=== PATIENT | female | born 1950 | race Caucasian/White ===

== ENCOUNTER 2016-08-30 03:40 | Inpatient (IN) | payer MEDICARE, BC ==
[2016-08-30] VITALS (17 sets, daily range): BP systolic 127–182; BP diastolic 61–88; PULSE 78–98; RESP 16–27; TEMP 98–101.4; O2SAT 88–96
[~2016-08-30] VITALS: Ht 160 cm; Wt 86.2 kg
[~2016-08-30 03:40] MED LIST: ALPR.25 PO; ASCO500C PO; CALCCHW25 CHEW; CLON.1 PO; DIAZ5TAB PO; HYDR-3516 PO; IMIT100T PO; LAXA5TAB PO; MULT-135 PO; PROC10TA PO; ZOFR4TAB PO; ZOVI400T PO; [UNRECOGNIZED DRUG - CODE]
[2016-08-30] MEDS ORDERED: METH5TAB PO (04:09)
--- NOTE | 2016-08-30 04:13 | PD ---
HPI Chief Complaint: GI Complaint Time Seen by Provider: 04:08 Travel History International Travel<30 days: No Contact w/Intl Traveler<30days: No Traveled to known affect area: No History of Present Illness HPI The patient is a 66-year-old female that received her fourth chemotherapy treatment for urethral cancer on Saturday. She complained of wheezing, cough and vomiting starting at 1 AM this morning. She denies any fever. 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, bone) Cardiovascular Problems: Yes (mitral valve prolapse) Chemotherapy: No Diabetes: No Diminished Hearing: No Endocrine: No Genitourinary: Yes (left kidney nephrectomy due to cancer) Hepatitis: No Hiatal Hernia: No Immune Disorder: No Implanted Vascular Access Dvce: Yes Musculoskeletal: Yes (L5-s1 pain, neck pain ) Neurologic: Yes (migraines) Psychiatric: Yes (anxiety) Reproductive: No Respiratory: No Thyroid Disease: No Menopausal: Yes Past Surgical History Abdominal Surgery: Yes (colon resection 2013 r/t kidney cancer with mets) AICD: No Body Medical Devices: kidney stent Cardiac Surgery: No Endocrine Surgery: No Genitourinary Surgery: Yes (left nephrectomy-12/2010 cancerious tumors removed from the bladder-2012) Joint Replacement: No Pacemaker: No Thoracic Surgery: No Other Surgery: Yes (LEFT KIDNEY REMOVED) Social History Alcohol Use: Yes (occas. wine) Tobacco Use: No (quit in 1992 smoked cigs 1 ppd) Substance Use: No Allergies-Medications (Allergen,Severity, Reaction): Coded Allergies: Clindamycin (Unverified Allergy, Severe, unknown reaction, 09/02/15) Keflex (Unverified Allergy, Severe, extreme headache, 09/02/15) Penicillin (Verified Allergy, Severe, MAKES ME SLEEPY, 09/02/15) Prednisone (Unverified Allergy, Severe, extreme agitation, 09/02/15) Morphine (Unverified Adverse Reaction, Mild, i.v. n/v, 09/02/15) Reported Meds & Prescriptions Reported Meds & Active Scripts Active Reported Nortriptyline (Nortriptyline HCl) 10 Mg Cap 10 Mg PO HS Propranolol (Propranolol HCl) 10 Mg Tab 10 Mg PO Q12HR Methadone (Methadone HCl) 5 Mg Tab 5 Mg PO DAILY Hydrocodone-Acetaminophen 5-325 mg Tab 1 Tab PO Q6H PRN Laxative Feminine DR (Bisacodyl) 5 Mg Tabdr 5 Mg PO DAILY PRN Zofran (Ondansetron HCl) 4 Mg Tab 4 Mg PO Q4HR PRN Prochlorperazine Maleate 10 Mg Tab 10 Mg PO Q6H PRN Multi Vitamin (Multiple Vitamin) 1 Tab Tab 1 Tab PO DAILY Garlic Oil (Garlic) 1,000 Mg Cap Diazepam 5 Mg Tab 5 Mg PO BID PRN Catapres (Clonidine) 0.1 Mg Tab 0.1 Mg PO HS PRN Calcium + D & K (Calcium-Vitamins D & K) 500-1,000-40 Mg-Unit-Mcg Chew 1 Tab CHEW Imitrex (Sumatriptan Succinate) 100 Mg Tab 100 Mg PO ONCE PRN If a satisfactory response has not been obtained at 2 hours, a second dose may be administered Vitamin C (Ascorbic Acid) 500 Mg Cap 500 Mg PO Xanax (Alprazolam) 0.25 Mg Tab 0.25 Mg PO BID PRN Zovirax (Acyclovir) 400 Mg Tab 400 Mg PO HS Review of Systems Except as stated in HPI: all other systems reviewed are Neg Physical Exam Narrative GENERAL: The patient is alert, oriented 3 and slight respiratory distress. The temperature is 99.8 and blood pressure 165/81. Respirations were 24. Oximetry was 88% on room air. The temperature is repeated by tympanic method and was 101.4. The heart rate is 97. SKIN: Warm and dry. HEAD: Atraumatic. Normocephalic. EYES: Pupils equal and round. No scleral icterus. No injection or drainage. ENT: No nasal bleeding or discharge. Mucous membranes pink and moist. NECK: Trachea midline. No JVD. CARDIOVASCULAR: Regular rate and rhythm. No murmur appreciated. RESPIRATORY: No accessory muscle use. Diminished breath sounds with a few widely scattered wheezes are heard bilaterally. Breath sounds equal bilaterally. GASTROINTESTINAL: Abdomen soft, non-tender, nondistended. Hepatic and splenic margins not palpable. MUSCULOSKELETAL: No obvious deformities. No clubbing. No cyanosis. No edema. NEUROLOGICAL: Awake and alert. No obvious cranial nerve deficits. Motor grossly within normal limits. Normal speech. PSYCHIATRIC: Appropriate mood and affect; insight and judgment normal. Data Data Last Documented VS Vital Signs Date Time Temp Pulse Resp B/P Pulse Ox O2 Delivery O2 Flow Rate FiO2 1/5/17 05:30 88 08/30/16 05:30 24 154/70 93 Nasal Cannula 4 08/30/16 04:42 101.4 Orders Complete Blood Count With Diff (08/30/16 04:08) Comprehensive Metabolic Panel (08/30/16 04:08) Magnesium (Mg) (08/30/16 04:08) Iv Access Insert/Monitor (08/30/16 04:08) Ecg Monitoring (08/30/16 04:08) Oximetry (08/30/16 04:08) Oxygen Administration (08/30/16 04:08) Sodium Chloride 0.9% Flush (Ns Flush) (08/30/16 04:15) Albuterol-Ipratropium Neb (Duoneb Neb) (08/30/16 04:15) Ondansetron Inj (Zofran Inj) (08/30/16 04:15) Arterial Blood Gas (Abg) (08/30/16 ) Chest, Pa & Lat (08/30/16 04:17) Blood Culture (08/30/16 04:38) Hydromorphone Pf Inj (Dilaudid Pf Inj) (08/30/16 05:00) Ondansetron Inj (Zofran Inj) (08/30/16 05:00) Ketorolac Inj (Toradol Inj) (08/30/16 05:00) B-Type Natriuretic Peptide (08/30/16 05:20) Furosemide Inj (Lasix Inj) (08/30/16 05:30) Potassium Chloride (Kcl) (08/30/16 05:30) Sodium Chloride 0.9% Flush (Ns Flush) (08/30/16 05:45) Azithromycin Inj (Zithromax Inj) (08/30/16 05:45) Levofloxacin 750 Mg Premix Inj (Levaquin (08/30/16 05:45) Admit Order (Ed Use Only) (08/30/16 05:58) Labs Laboratory Tests Test 08/30/16 08/30/16 08/30/16 04:27 04:28 04:35 White Blood Count 11.1 TH/MM3 Red Blood Count 3.55 MIL/MM3 Hemoglobin 10.9 GM/DL Hematocrit 32.1 % Mean Corpuscular Volume 90.5 FL Mean Corpuscular Hemoglobin 30.7 PG Mean Corpuscular Hemoglobin 34.0 % Concent Red Cell Distribution Width 14.0 % Platelet Count 253 TH/MM3 Mean Platelet Volume 8.2 FL Neutrophils (%) (Auto) 85.9 % Lymphocytes (%) (Auto) 9.0 % Monocytes (%) (Auto) 3.7 % Eosinophils (%) (Auto) 0.1 % Basophils (%) (Auto) 1.3 % Neutrophils # (Auto) 9.6 TH/MM3 Lymphocytes # (Auto) 1.0 TH/MM3 Monocytes # (Auto) 0.4 TH/MM3 Eosinophils # (Auto) 0.0 TH/MM3 Basophils # (Auto) 0.1 TH/MM3 CBC Comment AUTO DIFF Differential Total Cells 100 Counted Neutrophils % (Manual) 75 % Band Neutrophils % 13 % Lymphocytes % 7 % Monocytes % 5 % Neutrophils # (Manual) 9.8 TH/MM3 Differential Comment FINAL DIFF MANUAL Platelet Estimate NORMAL Platelet Morphology Comment NORMAL Red Cell Morphology Comment NORMAL Sodium Level 142 MEQ/L Potassium Level 3.4 MEQ/L Chloride Level 107 MEQ/L Carbon Dioxide Level 25.6 MEQ/L Anion Gap 9 MEQ/L Blood Urea Nitrogen 22 MG/DL Creatinine 1.20 MG/DL Estimat Glomerular Filtration 45 ML/MIN Rate Random Glucose 96 MG/DL Calcium Level 8.4 MG/DL Magnesium Level 1.9 MG/DL Total Bilirubin 0.6 MG/DL Aspartate Amino Transf 19 U/L (AST/SGOT) Alanine Aminotransferase 28 U/L (ALT/SGPT) Alkaline Phosphatase 47 U/L Total Protein 6.1 GM/DL Albumin 3.1 GM/DL B-Type Natriuretic Peptide 713 PG/ML Blood Gas Puncture Site RT RADIAL Blood Gas Patient Temperature 98.6 Blood Gas HCO3 23 mmol/L Blood Gas Base Excess -0.5 mmol/L Blood Gas Oxygen Saturation 79 % Arterial Blood pH 7.46 Arterial Blood Partial 33 mmHG Pressure CO2 Arterial Blood Partial 46 mmHG Pressure O2 Arterial Blood Oxygen Content 12.0 Vol % Arterial Blood 2.5 % Carboxyhemoglobin Arterial Blood Methemoglobin 1.3 % Blood Gas Hemoglobin 10.8 G/DL Oxygen Delivery Device ROOM AIR Blood Gas Inspired Oxygen 21 % MDM Medical Decision Making Medical Screen Exam Complete: Yes Emergency Medical Condition: Yes Medical Record Reviewed: Yes Interpretation(s) The CBC shows a white count 11,100 with a hemoglobin of 10.9 and hematocrit of 32.1. Neutrophils are 86%. The blood gas on room air shows O2 saturation 79%, PO2 46% with pH 7.46 and CO2 33. The complete metabolic profile shows a potassium 3.4, BUN 22, creatinine 1.2, calcium 8.4 with total protein 6.1 and albumen 3.1 but is otherwise unremarkable. The chest x-ray shows right lower lobe infiltrate but was also suspicious for congestive heart failure. A BNP was done and is 713. Differential Diagnosis Reaction to chemotherapy, pneumonia, congestive heart failure, hypoxemia, bronchospasm, electrolyte disorder, renal insufficiency Narrative Course The patient is on chemotherapy medications that may lead to congestive heart failure. The patient's BNP is elevated and the chest x-ray is shows ST above some congestive heart failure. The patient is hypoxic. Patient did not manifest a fever orally but only on tympanic thermometer. Sepsis is somewhat questionable but the patient does have a pneumonia. A fluid bolus was not given at this time because of the likelihood of congestive heart failure. I discussed the patient with Dr. Hu and the patient will be admitted to [facility] to the electronics engineer service. Dr. Robbins took over the patient and is currently doing ultrasound to define the patient's cardiac status, that is whether the patient is in congestive heart failure. Sepsis Criteria SIRS Criteria (2 or more): Temp > 100.9 or < 96.8, Heart rate over 90, RR > 20 or PaCO2 < 32 Sepsis Criteria (SIRS+source): Infect source susp/known Criteria Outcome: Meets sepsis criteria Diagnosis Primary Impression: Right lower lobe pneumonia Additional Impressions: Congestive heart failure Hypoxemia Admitting Information Admitting Physician Requests: Admit Bjorn Chandler MD Aug 30, 2016 04:13
[2016-08-30] MEDS ORDERED: ONDANSETRON HCL 4 MG/2 ML VIAL IV ONE ×2 (04:15→05:00)
[2016-08-30] MEDS ORDERED: SODIUM CHLORIDE 0.9% FLUSH 5 ML FLUSH IVF PRN ×2 (04:15→05:45)
[2016-08-30] MEDS: RESP: ALBUTEROL 2.5 MG/IPRATROPIUM 0.5 MG NEB (SCH) INH ×3 (04:24→04:46)
[2016-08-30 04:33] LABS: AUTOMATED NEUTROPHIL # 9.6 TH/MM3 (1.8-7.7); BASOPHIL # 0.1 TH/MM3 (0-0.2); BASOPHIL % 1.3 % (0.0-2.0); EOSINOPHIL % 0.1 % (0.0-4.0); HEMATOCRIT 32.1 % (35.0-46.0); MEAN CELL VOLUME 90.5 FL (80.0-100.0); MEAN CORPUSCULAR HEMOGLOBIN 30.7 PG (27.0-34.0); MONO % 3.7 % (0.0-8.0); NEUT % 85.9 % (16.0-70.0); PLATELET COUNT 253 TH/MM3 (150-450); RED BLOOD COUNT 3.55 MIL/MM3 (4.00-5.30); WHITE BLOOD COUNT 11.1 TH/MM3 (4.0-11.0)
[2016-08-30 04:34] LABS: HEMO FLAGS AUTO DIFF
[2016-08-30 04:41] LABS: CHLORIDE 107 MEQ/L (98-107); POTASSIUM 3.4 MEQ/L (3.5-5.1); SODIUM (NA) 142 MEQ/L (136-145)
[2016-08-30 04:44] LABS: ANION GAP 9 MEQ/L (5-15); BICARBONATE 25.6 MEQ/L (21.0-32.0); MAGNESIUM 1.9 MG/DL (1.5-2.5)
[2016-08-30 04:45] LABS: BLOOD UREA NITROGEN 22 MG/DL (7-18)
[2016-08-30 04:48] LABS: ALT (GPT) 28 U/L (10-53); AST (GOT) 19 U/L (15-37); GLOMERULAR FILTRATION RATE 45 ML/MIN (>89)
[2016-08-30 04:49] LABS: TOTAL BILIRUBIN ADULT 0.6 MG/DL (0.2-1.0)
[2016-08-30 04:49] LABS: BLOOD GAS BASE EXCESS -0.5 mmol/L (-2-2); BLOOD GAS CARBOXYHEMOGLOBIN 2.5 % (0-4); BLOOD GAS HCO3 23 mmol/L (22-26); BLOOD GAS METHEMOGLOBIN 1.3 % (0-2); BLOOD GAS PCO2 33 mmHG (38-42); BLOOD GAS PO2 46 mmHG (61-120)
[2016-08-30 04:50] LABS: ALKALINE PHOSPHATASE 47 U/L (45-117)
[2016-08-30 04:50] LABS: BLOOD GAS O2 HGB SATURATION 79 % (90-100); BLOOD GAS TOTAL HGB 10.8 G/DL (12.0-16.0); CRITICAL VALUE YES; DRAW SITE RT RADIAL; FIO2 21 %; NUMBER OF ARTERIAL PUNCTURES 1; OXYGEN DEVICE ROOM AIR; STAT YES; TEMP CORR TO 98.6; ULNAR PULSE PRESENT
[2016-08-30 04:57] LABS: BANDS 13 % (0-6); NEUTROPHIL # MANUAL DIFF 9.8 TH/MM3 (1.8-7.7); PLATELET ESTIMATE SMEAR NORMAL (NORMAL); PLATELET MORPHOLOGY NORMAL (NORMAL); POLYS (SEG NEUTROPHILS) 75 % (16-70); SCAN/DIFF FINAL DIFF MANUAL; WBC DIFF SAMPLE 100
[2016-08-30] MEDS ORDERED: HYDROmorphone HCL PF 1 MG/ML VIAL IVP ONE (05:00)
[2016-08-30] MEDS ORDERED: KETOROLAC TROMETHAMINE 60 MG/2 ML (IM) VIAL IVP ONE (05:00)
[2016-08-30] MEDS ORDERED: FUROSEMIDE 40 MG/4 ML VIAL IV PUSH ONE (05:30)
[2016-08-30] MEDS ORDERED: POTASSIUM CHLORIDE 20 MEQ CONTROLLED RELEASE TAB PO ONE (05:30)
--- NOTE | 2016-08-30 05:34 | RADHPO ---
EXAM DATE/TIME: 08/30/2016 05:06 [facility] COMPARISON: CHEST SINGLE AP, August 01, 2016, 17:51. INDICATIONS : Shortness of breath, cough, wheezing for 12 hours MEDICAL HISTORY : Kidney cancer with mets to the bladder and colon. SURGICAL HISTORY : Infusaport ENCOUNTER: Initial ACUITY: 1 day PAIN SCORE: 0/10 LOCATION: Bilateral chest FINDINGS: PA and lateral views the chest show patchy infiltrate involving the right lung base. Left lung is juan ar. No effusions. Power port overlies the left chest. Heart is normal in size. CONCLUSION: Right lower lobe infiltrate. Ronald Robbins Jr., MD on August 30, 2016 at 5:32 Board Certified Radiologist. This report was verified electronically.
[2016-08-30] MEDS ORDERED: AZITHROMYCIN INJ 500 MG in SODIUM CHLOR 0.9% 250 ML INJ 250 ML IV ONE (05:45)
[2016-08-30] MEDS ORDERED: LEVOFLOXACIN 750 MG PREMIX INJ 150 ML IV ONE (05:45)
[2016-08-30] MEDS ORDERED: MAGNESIUM SULFATE INJ 2 GM in SODIUM CHLORIDE 0.9% INJ 96 ML IV PRN (06:30)
[2016-08-30] MEDS ORDERED: POTASSIUM PHOSPHATE INJ 30 MMOL in SODIUM CHLOR 0.9% 250 ML INJ 250 ML IV PRN (06:30)
[2016-08-30] MEDS ORDERED: POTASSIUM CHLOR 40 MEQ PREMIX 100 ML IV PRN ×2 (06:30)
[2016-08-30] MEDS ORDERED: SUMAtriptan INJ 6 MG/0.5 ML VIAL SQ ONE (06:30)
[2016-08-30] MEDS ORDERED: SODIUM PHOSPHATE INJ 30 MMOL in SODIUM CHLOR 0.9% 250 ML INJ 240 ML IV PRN (06:30)
[2016-08-30] MEDS ORDERED: CHLORHEXIDINE GLUCONATE 2 % 1 PACK (2 CLOTHS) TOP PRN (06:30)
[2016-08-30] MEDS ORDERED: POTASSIUM PHOSPHATE MONOBASIC 500 MG TAB PO PRN (06:30)
[2016-08-30] MEDS ORDERED: POTASSIUM PHOSPHATE MONOBASIC 500 MG TAB PO/TUBE PRN (06:30)
[2016-08-30] MEDS ORDERED: Vancomycin Consult Pharmacy 1 EA OTHER SCH (06:30)
[2016-08-30] MEDS ORDERED: POTASSIUM CHLOR 20 MEQ PREMIX 100 ML IV PRN ×2 (06:30)
[2016-08-30] MEDS ORDERED: MAGNESIUM SULFATE INJ 4 GM in SODIUM CHLORIDE 0.9% INJ 92 ML IV PRN (06:30)
[2016-08-30] MEDS ORDERED: HYDROmorphone HCL PF 1 MG/ML VIAL IV PUSH PRN (06:30)
[2016-08-30] MEDS ORDERED: SODIUM CHLORIDE 0.9% FLUSH 5 ML FLUSH IV FLUSH PRN (06:30)
[2016-08-30] MEDS ORDERED: ACETAMINOPHEN 325 MG TAB PO PRN (06:30)
[2016-08-30] MEDS ORDERED: MISCELLANEOUS NURSING INFORMATION XX SCH (06:30)
[2016-08-30] MEDS ORDERED: DEXTROSE 50% IN WATER 50 ML VIAL(D50) IV PUSH PRN (06:30)
[2016-08-30] MEDS ORDERED: POTASSIUM CL 40 MEQ/30 ML LIQ UDC PO/TUBE PRN ×2 (06:30)
[2016-08-30] MEDS ORDERED: MAGNESIUM OXIDE 400 MG TAB PO PRN (06:30)
[2016-08-30 06:44] LABS: BLOOD, URINE NEG (NEG); GLUCOSE,URINE NEG (NEG); KETONE, URINE NEG (NEG); PH, URINE 5.5 (5.0-8.5)
[2016-08-30 06:45] LABS: METHOD OF COLLECTION CLEAN CATCH; NITRITE,URINE POS (NEG); URINE COLOR YELLOW (YELLW/STRAW)
[2016-08-30 06:48] LABS: BACTERIA, URINE MANY /hpf; COMMENT (UR) CULTURE INDICATED; CULTURE IF INDICATED CULTURE INDICATED; SQUAMOUS EPITHELIAL CELL URINE 0-5 /hpf (0-5)
[2016-08-30] MEDS: HEPARIN SODIUM - SQ 10,000 UNITS/ML VIAL SQ SCH ×3 (07:19→21:22)
[2016-08-30] MEDS: AZTREONAM INJ 1,000 MG in SODIUM CHLORIDE 0.9% INJ 100 ML IV SCH ×3 (08:00→23:13)
[2016-08-30] MEDS: SODIUM CHLORIDE 0.9% FLUSH 5 ML FLUSH IV FLUSH SCH ×2 (09:00→21:00)
[2016-08-30] MEDS: DOCUSATE SODIUM 50 MG/SENNA 8.6 MG TAB PO SCH ×2 (09:00→21:21)
[2016-08-30] MEDS: VANCOMYCIN INJ 1,600 MG in SODIUM CHLORID 0.9% 500 ML INJ 500 ML IV SCH (09:00)
[2016-08-30] MEDS: PANTOPRAZOLE SODIUM 40 MG VIAL IV SCH (09:00)
[2016-08-30] MEDS ORDERED: IODIXANOL 320 MG/ML 10 ML VIAL (for Rad CT) IV ONE (09:47)
--- NOTE | 2016-08-30 09:53 | RADRPT ---
EXAM DATE/TIME: 08/30/2016 09:21 [facility] COMPARISON: CHEST PA & LAT, August 30, 2016, 5:06. INDICATIONS : New onset cough, shortness of breath. IV CONTRAST: 50 cc Visipaque (iodixanol) IV ; Cumulative dose for multiple exams. RADIATION DOSE: 15.40 CTDIvol (mGy) ; Combined studies MEDICAL HISTORY : Cardiovascular disease. Renal cancer with multiple metastic lesions SURGICAL HISTORY : Nephrectomy, left. ENCOUNTER: Initial ACUITY: 1 day PAIN SCALE: 0/10 LOCATION: chest TECHNIQUE: Volumetric scanning of the chest was performed using a pulmonary embolism protocol MIP images were re constructed. Using automated exposure control and adjustment of the mA and/or kV according to patien t size, radiation dose was kept as low as reasonably achievable to obtain optimal diagnostic quality images. FINDINGS: PULMONARY ARTERIES: No filling defects are seen in the pulmonary arteries through the segmental level. LUNGS: Severe emphysema. Patchy bibasilar densities. Groundglass densities in the posterior upper lobes grea ter on the right. PLEURAE: There are bilateral small pleural effusions greater on the right. MEDIASTINUM: There is good visualization of the great vessels of the middle mediastinum. No evidence of mediastin al or hilar adenopathy/mass. MUSCULOSKELETAL: Within normal limits for patient age. MISCELLANEOUS: The visualized upper abdominal organs demonstrate no acute abnormality. Left-sided portacatheter with tip at the cavoatrial junction. CONCLUSION: 1. No evidence for pulmonary embolism. 2. Scattered groundglass densities possibly interstitial edema. 3. Bibasilar densities likely atelectasis. 4. Small pleural effusions, greater on the right. 5. Severe emphysema. Yevgeniy Marsh MD on August 30, 2016 at 9:48 Board Certified Radiologist. This report was verified electronically.
--- NOTE | 2016-08-30 10:03 | RADRPT ---
EXAM DATE/TIME: 08/30/2016 09:21 [facility] COMPARISON: No previous studies available for comparison. INDICATIONS : History of metastatic disease with new onset nausea and vomiting. IV CONTRAST: 50 cc Visipaque (iodixanol) IV ; Cumulative dose for multiple exams. ORAL CONTRAST: No oral contrast ingested. RADIATION DOSE: 16.34 CTDIvol (mGy) MEDICAL HISTORY : Cardiovascular disease. Metastatic, kidney. SURGICAL HISTORY : Nephrectomy, left. ENCOUNTER: Initial ACUITY: 1 day PAIN SCALE: 0/10 LOCATION: Bilateral abdomen TECHNIQUE: Volumetric scanning of the abdomen and pelvis was performed. Using automated exposure control and ad justment of the mA and/or kV according to patient size, radiation dose was kept as low as reasonably achievable to obtain optimal diagnostic quality images. FINDINGS: There is a multilobulated soft tissue mass in the left hemipelvis measuring over 5 cm in diameter and also resulting in bony destruction of the upper left iliac bone. Finding is most characteristic of m etastatic renal cell carcinoma given the history of renal cell carcinoma with left nephrectomy. Findi ng is new since December 2014. There are small bilateral pleural effusions and compressive atelectasis at the lung bases. No focal a bnormality identified of the liver, spleen, adrenals, right kidney or pancreas. No calcified gallston es or biliary ductal dilatation. Manriquez catheter present the bladder. There is no gastric distention. No small bowel obstruction or dilatation. CONCLUSION: 1. Soft tissue and bony destructive mass in the left hemipelvis measuring over 5 cm in diameter jeremy cteristic of metastatic renal cell carcinoma. Postoperative left nephrectomy. 2. Small bilateral pleural effusions with basilar lung atelectasis. 3. No gastric distention. No bowel obstruction, free fluid or free air. Willie Landa MD on August 30, 2016 at 9:50 Board Certified Radiologist. This report was verified electronically.
[2016-08-30] MEDS: INSULIN NovoLIN REGULAR SUPPLEMENTAL SCALE SQ SCH ×2 (12:00→18:00)
[2016-08-30] MEDS ORDERED: PROP10TA6 PO (16:22)
[2016-08-30] MEDS ORDERED: NORT10CA PO (16:25)
--- NOTE | 2016-08-30 16:39 | HHI.HP ---
[facility] Service Critical Care Medicine Primary Care Physician Ming Cabrera, DO Admission Diagnosis right lower lobe pneumonia, hypoxemia Diagnosis: Chief Complaint: shortness of breath Travel History International Travel<30 Days: No Contact w/Intl Traveler <30 Da: No Traveled to Known Affected Are: No History of Present Illness This is a 66yF with history of urothelial carcinoma with wide-spread retroperitoneal mets including pelvic mets who is actively undergoing chemotherapy with vincristine, cisplatin, doxorubicin, and methotrexate (last chemo 08/28) who presents with new-onset shortness of breath, nausea, vomiting x 1 day. She endorses fever, but denies chills. denies chest pain. Of note, she was started on methadone for cancer pain, and she took her first dose of this on an empty stomach, and felt nauseated a few hours after this. In the emergency room, she was found to have a wbc 11.1, fever to 101.4F, and a new oxygen requirement of 4L o2 by NC. Given the concern for possible impending neutropenia given her recent chemotherapy exposure, and the symptoms concerning for a pulmonary source, possible early sepsis was entertained. her lactate is 1.1. Critical care medicine is consulted to evaluate and manage her possible early sepsis. Of note, her BNP was slightly elevated at 700. 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 He give patient 40 mg of IV Lasix 1. I evaluated the patient at approximately 06:05am. When I evaluated her, she was alert and oriented and was able to confirm the above history. Review of Systems Constitutional: COMPLAINS OF: Fever, DENIES: Diaphoretic episodes, Fatigue, Chills, Night Sweats Respiratory: COMPLAINS OF: Shortness of breath, DENIES: Cough, Wheezing, Sputum production Cardiovascular: DENIES: Chest pain, Syncope, Dyspnea on Exertion Gastrointestinal: COMPLAINS OF: Nausea, Vomiting, DENIES: Abdominal pain, Constipation, Diarrhea Past Family Social History Allergies: Coded Allergies: Clindamycin (Unverified Allergy, Severe, unknown reaction, 09/02/15) Keflex (Unverified Allergy, Severe, extreme headache, 09/02/15) Penicillin (Verified Allergy, Severe, MAKES ME SLEEPY, 09/02/15) Prednisone (Unverified Allergy, Severe, extreme agitation, 09/02/15) Morphine (Unverified Adverse Reaction, Mild, i.v. n/v, 09/02/15) Past Medical History Anxiety left kidney cancer with mets to bladder and colon and bone. Mitral valve prolapse Lumbar back pain Anxiety Migraines Past Surgical History Colon resection 2013 Left nephrectomy 2010 Tumors removed from the bladder 2012 Port placement Kidney stent Reported Medications Methadone (Methadone HCl) 5 Mg Tab 5 Mg PO DAILY Hydrocodone-Acetaminophen 5-325 mg Tab 1 Tab PO Q6H PRN Laxative Feminine DR (Bisacodyl) 5 Mg Tabdr 5 Mg PO DAILY PRN Zofran (Ondansetron HCl) 4 Mg Tab 4 Mg PO Q4HR PRN Prochlorperazine Maleate 10 Mg Tab 10 Mg PO Q6H PRN Multi Vitamin (Multiple Vitamin) 1 Tab Tab 1 Tab PO DAILY Garlic Oil (Garlic) 1,000 Mg Cap Diazepam 5 Mg Tab 5 Mg PO BID PRN Catapres (Clonidine) 0.1 Mg Tab 0.1 Mg PO HS PRN Calcium + D & K (Calcium-Vitamins D & K) 500-1,000-40 Mg-Unit-Mcg Chew 1 Tab CHEW Imitrex (Sumatriptan Succinate) 100 Mg Tab 100 Mg PO ONCE PRN If a satisfactory response has not been obtained at 2 hours, a second dose may be administered Vitamin C (Ascorbic Acid) 500 Mg Cap 500 Mg PO Xanax (Alprazolam) 0.25 Mg Tab 0.25 Mg PO BID PRN Zovirax (Acyclovir) 400 Mg Tab 400 Mg PO HS Active Ordered Medications See MAR Family History reviewed and found to be noncontributory to her acute illness Social History occasional wine drinker, 1ppd prior smoker but quit in 1992. denies DOA. Physical Exam Vital Signs Vital Signs Date Time Temp Pulse Resp B/P Pulse Ox O2 Delivery O2 Flow Rate FiO2 08/30/16 16:00 84 08/30/16 16:00 98.0 84 19 172/81 95 08/30/16 14:00 89 08/30/16 12:00 98.0 82 16 139/64 96 08/30/16 12:00 82 08/30/16 10:00 82 08/30/16 08:30 96 Nasal Cannula 4.00 08/30/16 08:30 98.5 82 27 135/61 96 08/30/16 08:15 82 08/30/16 07:24 80 18 96 Nasal Cannula 4 08/30/16 07:01 89 18 127/64 95 Nasal Cannula 2 08/30/16 06:20 88 24 137/62 94 Nasal Cannula 4 08/30/16 05:30 88 08/30/16 05:30 90 24 154/70 93 Nasal Cannula 4 08/30/16 04:53 24 08/30/16 04:46 95 Nasal Cannula 4.00 08/30/16 04:42 101.4 88 20 182/84 88 08/30/16 04:14 18 93 Nasal Cannula 2 08/30/16 04:14 93 Nasal Cannula 2 08/30/16 04:14 18 08/30/16 04:09 99.8 98 18 170/88 88 Physical Exam GENERAL: Elderly female, lying in bed HEENT: Bald, pupils equal, round, conjugate, reactive. Mucous membranes are dry. NECK: No JVD. Trachea is midline. CHEST: Equal chest rise. Mildly tachypneic. On 4 L nasal cannula oxygen with SPO2 96%. Clear to auscultation bilaterally. CARDIOVASCULAR: Normal rate, regular rhythm. No appreciable murmurs. ABDOMEN: Obese, soft, nontender, nondistended. No guarding. MUSCULOSKELETAL: No peripheral edema. Distal pulses 2+. NEUROLOGICAL: RASS 0. CAM -. Follows commands in all 4 extremities. No focal motor or sensory deficits. Laboratory Laboratory Tests Test 08/30/16 08/30/16 08/30/16 08/30/16 04:27 04:28 04:35 06:30 White Blood Count 11.1 Red Blood Count 3.55 Hemoglobin 10.9 Hematocrit 32.1 Mean Corpuscular Volume 90.5 Mean Corpuscular Hemoglobin 30.7 Mean Corpuscular Hemoglobin 34.0 Concent Red Cell Distribution Width 14.0 Platelet Count 253 Mean Platelet Volume 8.2 Neutrophils (%) (Auto) 85.9 Lymphocytes (%) (Auto) 9.0 Monocytes (%) (Auto) 3.7 Eosinophils (%) (Auto) 0.1 Basophils (%) (Auto) 1.3 Neutrophils # (Auto) 9.6 Lymphocytes # (Auto) 1.0 Monocytes # (Auto) 0.4 Eosinophils # (Auto) 0.0 Basophils # (Auto) 0.1 CBC Comment AUTO DIFF Differential Total Cells 100 Counted Neutrophils % (Manual) 75 Band Neutrophils % 13 Lymphocytes % 7 Monocytes % 5 Neutrophils # (Manual) 9.8 Differential Comment FINAL DIFF MANUAL Platelet Estimate NORMAL Platelet Morphology Comment NORMAL Red Cell Morphology Comment NORMAL Sodium Level 142 Potassium Level 3.4 Chloride Level 107 Carbon Dioxide Level 25.6 Anion Gap 9 Blood Urea Nitrogen 22 Creatinine 1.20 Estimat Glomerular Filtration 45 Rate Random Glucose 96 Calcium Level 8.4 Magnesium Level 1.9 Total Bilirubin 0.6 Aspartate Amino Transf 19 (AST/SGOT) Alanine Aminotransferase 28 (ALT/SGPT) Alkaline Phosphatase 47 Total Protein 6.1 Albumin 3.1 B-Type Natriuretic Peptide 713 Blood Gas Puncture Site RT RADIAL Blood Gas Patient Temperature 98.6 Blood Gas HCO3 23 Blood Gas Base Excess -0.5 Blood Gas Oxygen Saturation 79 Arterial Blood pH 7.46 Arterial Blood Partial 33 Pressure CO2 Arterial Blood Partial 46 Pressure O2 Arterial Blood Oxygen Content 12.0 Arterial Blood 2.5 Carboxyhemoglobin Arterial Blood Methemoglobin 1.3 Blood Gas Hemoglobin 10.8 Oxygen Delivery Device ROOM AIR Blood Gas Inspired Oxygen 21 Urine Collection Type CLEAN CATCH Urine Color YELLOW Urine Turbidity SLIGHT Urine pH 5.5 Urine Specific [place] 1.013 Urine Protein NEG Urine Glucose (UA) NEG Urine Ketones NEG Urine Occult Blood NEG Urine Nitrite POS Urine Bilirubin NEG Urine Leukocyte Esterase NEG Urine WBC 9-14 Urine WBC Clumps FEW Urine Squamous Epithelial 0-5 Cells Urine Amorphous Sediment FEW Urine Bacteria MANY Microscopic Urinalysis Comment CULTURE INDICATED Urine Collection Time 0630 Test 08/30/16 06:40 Lactic Acid Level 1.1 Date/Time Procedure Status Source Growth 08/30/16 06:30 Urine Culture Received Urine Clean Catch Pending 08/30/16 06:30 Streptococcus pneumoniae Antigen (M - Final Complete Urine Catheterized Urine PRESUMPTIVE NEGATIVE FOR STREPTOCOCCU... 08/30/16 04:50 Aerobic Blood Culture Received Blood Peripheral Pending 08/30/16 04:50 Anaerobic Blood Culture Received Blood Peripheral Pending Result Diagram: 08/30/167 08/30/16426 Assessment and Plan Assessment and Plan Assessment: This is a 66-year-old female with history of urothelial cancer now status post chemotherapy on 08/28. Many of her symptoms can be explained by chemotherapy associated nausea and vomiting. I have consulted her primary oncologist who will evaluate the patient and assist with discerning which these symptoms are related to her recent chemotherapy. I do think that her new fever , leukocytosis, and oxygen requirement are all concerning. Pulmonary embolism could cause this, but also a new community-acquired pneumonia. We will move ahead with CT pulmonary angiogram to evaluate this. In addition, she has known intra-abdominal metastases, and I think proceeding with a CT abdomen and pelvis since her last evaluation was back in May, we'll give us an idea of whether or not there is progression of disease and whether or not this disease is causing intra-abdominal symptoms that she is having. Hemodynamically, she is stable, and I do think it is meier to admit her to the ICU for today. If she remains stable, we can transition her to the floor tomorrow. As far as the concern of the elevated BNP, clinically she does not appear to be in overt heart failure. I performed a critical care bedside ultrasound which demonstrated grossly preserved LV systolic function, preserved RV function, 1.8 cm IVC without respiratory variation. No pericardial effusion. I do not find her to be in decompensated heart failure. I do think it is reasonable to obtain 2-D echocardiogram to evaluate ventricular function since we do not have a prior echocardiogram here. Plan by systems: Neurologic: Migraines Cancer associated pain Dilaudid as needed for pain We'll restart home migraine medicines: Nortriptyline, Imitrex Respiratory: Acute hypoxemia Wean oxygen by nasal cannula for goal SPO2 greater than 92% Incentive spirometer to bedside Follow-up CT chest, CT pulmonary angiogram Cardiovascular: Possible early sepsis Possible systolic heart failure Monitored in ICU setting Lactate 1.1 Follow-up 2-D echocardiogram She will get a large volume of IV fluids with her antibiotics. We will not add additional maintenance IV fluids at this time. Renal: Acute kidney injury Place Manriquez catheter for strict I's and O's -- Strict I/Os FEN/GI: Acute protein calorie malnutritionmild Hypokalemia ICU electrolyte protocol Nursing bedside swallow assessment advanced to clear liquid diet. We can advance slowly after that if her nausea resolves Zofran for nausea Daily BMP Follow-up CT abdomen pelvis Heme/ID: Anemia, likely secondary to chemotherapy Leukocytosis Possible pneumonia Urothelial carcinoma with widespread metastatic disease. Vancomycin with pharmacy dosing Aztreonam Azithromycin Sputum, blood, urine cultures Urine pneumococcal antigen Given her presumed immune compromised state with recent chemotherapy, we will consult ID. Consult her primary oncologist Endocrine: Hyperglycemia of critical illness -- SSI on medium scale, before meals at bedtime Prophylaxis: GI Prophylaxis Protonix 40 mg IV every 24 hours DVT Prophylaxis -- SCDs Subcutaneous heparin 5000 every 8 the setting of renal dysfunction. We will stop this to Lovenox if her renal function improves, but I'm not sure what the course of her renal dysfunction will be. Lines: Peripheral IVs Port access. We will attempt to Deaccess this if possible. Dispo: Transfer to the main [place] intensive care unit. I agree that she should be watched closely. If she remained stable throughout the day, I think it is safe to transfer to the floor. Code Status Full Code Jayme Mckeon MD Aug 30, 2016 16:39
[2016-08-30] MEDS: ONDANSETRON HCL 4 MG/2 ML VIAL IV PRN ×2 (17:04→23:13)
--- NOTE | 2016-08-30 20:30 | MB ---
cc: ANI MCKEON MD, RUBY ANNE E. M.D. DATE OF CONSULTATION: 08/30/2016 DATE OF [address] Ani Mckeon CHIEF COMPLAINT Dr. Mckeon requested a consultation for Ms. Plata regarding metastatic/locally advanced urothelial cancer. HISTORY OF PRESENT ILLNESS Ms. Plata is a 66-year-old woman well-known patient with a history of superficial bladder cancer who developed progressive and metastatic disease. She is status post cycle 2 of MVAC chemotherapy. Two days after chemotherapy, she had a significant amount of nausea, vomiting and became short of breath. She called Dr. Hu architectural draftsperson who advised them to go to the emergency room because of the shortness of breath. In the emergency room, she was found to have early infiltrate and B-natriuretic peptide was 713. In light of her symptoms, she was transferred from [place] [facility] to [facility]. Hematology/Oncology is consulted for the metastatic locally advanced bladder cancer. She complains of persistent migraine headaches. This is typical for her. She has mood swings and irritability post dexamethasone. She had a great deal more nausea. She attributes part of that to the methadone. She still has pain from the headache and from the left hip. She has no appetite and was clearly short of breath and has improved during the time of the consultation. She denies any vision changes. She had some low grade temperature on presentation. Her temperature was 101.4. She was not however neutropenic. She denies any urinary complaint, no hematuria, no diarrhea. PAST MEDICAL HISTORY 1. Iron deficiency anemia. 2. Chronic renal insufficiency. 3. Nephrolithiasis. 4. Migraine headache. 5. Superficial bladder cancer. 6. Metastatic invasive bladder cancer. PAST SURGICAL HISTORY 1. Laparoscopic surgery. 2. Peritoneal nodule excision. 3. Cystoscopy. 4. Left nephrectomy. 5. CT-guided bone biopsy. ALLERGIES CLINDAMYCIN, KEFLEX, MORPHINE, PENICILLIN, PREDNISONE. CURRENT MEDICATION 1. Azithromycin. 2. Nortriptyline. 3. Propranolol. 4. Imitrex. 5. Protonix. 6. Kelli-Colace. 7. Vancomycin. 8. Aztreonam. 9. Magnesium oxide. 10. Roxicodone. 11. Zofran. 12. Heparin. PHYSICAL EXAMINATION VITAL SIGNS: Temperature 98.0, heart rate 84, respiratory rate 19, blood pressure 172/81, saturation 92%. GENERAL: Ms. Plata is a tired-appearing woman with alopecia. HEENT: Her pupils are round and reactive to light and accommodation. Oropharynx is dry. NECK: Neck is supple. LUNGS: Lungs are clear anteriorly. CARDIOVASCULAR: Reveals a normal rate and rhythm. ABDOMEN: Abdomen is benign. LOWER EXTREMITIES: Lower extremities with no edema. NEUROLOGIC: Exam is nonfocal. LABORATORY DATA Significant for leukocytosis, white blood cell count 11.1, hemoglobin at 10.9, platelet count 253, BUN of 22, creatinine 1.2, albumin decreased at 3.1, B-natriuretic peptide is 715. FAMILY HISTORY Significant for colon and liver cancer. She is , has a significant other. SOCIAL HISTORY Denies any tobacco, alcohol or illicit drug use. ASSESSMENT AND PLAN Ms. Plata is a 66-year-old woman with a history of noninvasive papillary urothelial cancer with high-grade features. She developed recurrent disease intraperitoneally and subsequently developed invasive cancer. She is receiving palliative chemotherapy with MVAC coordinated with MD Sprague in [place]. She is pending a followup appointment at [facility] for participation in a clinical trial. After consideration of the risk and benefit of her chemotherapy options, MVAC chemotherapy was recommended. We had a lengthy discussion about toxicity associated with MVAC chemotherapy. She has received Adriamycin and cisplatin which contributes to the nausea. A dose of Adriamycin is unlikely to produce the above symptom leading to acute heart failure however we will follow. Clinically she does not appear to have congestive heart failure from Adriamycin acute toxicity. She has chronic renal insufficiency with creatinine base on a 1.2-1.3. This is a concern of course as she only has one kidney. We gave her nephrotoxic chemotherapy such as cisplatin. We have insured that this was administered with significant IV fluid hydration which contributed to the findings. We discussed the CT angiogram was negative for pulmonary embolism. There are some bibasilar densities likely atelectasis. She is being empirically treated. She received G-CSF support, I anticipate that chante would not occur until 7 days from now. The small pleural effusion greater on the right and severe emphysema are likely contributing to her shortness of breath. She has a great deal of anxiety about her treatments and her symptoms. We have tapered her amitriptyline, nortriptyline and Lexapro. Her amitriptyline and nortriptyline are used for prophylaxis of migraine headache which is of questionable efficacy. Lexapro has been effective in decreasing her irritation and agitation after Decadron. Medications are on hold at present. We will resume them as she becomes more stable. Case was discussed with Dr. Mckeon and concur that with continued stability and clinical improvement anticipate that she will be transferred to the regular oncology floor in the morning. No specific therapy is required for the chemotherapy-induced anemia. We will try to aggressively manage her pain as well as her nausea. Her main complaint however is related to her migraine. Lastly, advanced directives were broached by Dr. Mckeon and be introduced to her and her significant other. She is advised to consider this and discuss it further. Questions were answered to their satisfaction. MD TROY Brian/BJF /7:21 PM /7:47 PM
[2016-08-30] MEDS: SUMAtriptan SUCCINATE 50 MG TAB PO PRN (21:21)
[2016-08-30] MEDS: PROPRANOLOL HCL 10 MG TAB PO SCH (21:21)
[2016-08-30] MEDS: NORTRIPTYLINE HCL 10 MG CAP PO SCH (21:21)
[2016-08-31] VITALS (13 sets, daily range): BP systolic 124–176; BP diastolic 65–79; PULSE 76–91; RESP 16–23; TEMP 98–99.2; O2SAT 91–97
[2016-08-31] MEDS: CHLORHEXIDINE GLUCONATE 2 % 1 PACK (2 CLOTHS) TOP SCH (04:00)
[2016-08-31] MEDS: SUMAtriptan SUCCINATE 50 MG TAB PO PRN ×2 (05:41→17:16)
[2016-08-31] MEDS: AZITHROMYCIN INJ 250 MG in SODIUM CHLOR 0.9% 250 ML INJ 250 ML IV SCH (05:44)
[2016-08-31] MEDS: HEPARIN SODIUM - SQ 10,000 UNITS/ML VIAL SQ SCH ×3 (05:44→21:57)
[2016-08-31 05:48] LABS: HEMATOCRIT 29.7 % (35.0-46.0); MEAN CELL VOLUME 89.3 FL (80.0-100.0); MEAN CORPUSCULAR HEMOGLOBIN 30.7 PG (27.0-34.0); MEAN CORPUSCULAR HGB CONC 34.3 % (32.0-36.0); PLATELET COUNT 199 TH/MM3 (150-450); RED BLOOD COUNT 3.33 MIL/MM3 (4.00-5.30); RED CELL DISTRIBUTION WIDTH 14.3 % (11.6-17.2); REVIEW FLAG FINAL; WHITE BLOOD COUNT 14.1 TH/MM3 (4.0-11.0)
[2016-08-31] MEDS: INSULIN NovoLIN REGULAR SUPPLEMENTAL SCALE SQ SCH ×4 (06:00→18:00)
[2016-08-31 06:11] LABS: BICARBONATE 27.4 MEQ/L (21.0-32.0); POTASSIUM 3.3 MEQ/L (3.5-5.1)
[2016-08-31] MEDS: AZTREONAM INJ 1,000 MG in SODIUM CHLORIDE 0.9% INJ 100 ML IV SCH (08:00)
[2016-08-31] MEDS: VANCOMYCIN INJ 1,600 MG in SODIUM CHLORID 0.9% 500 ML INJ 500 ML IV SCH (09:00)
[2016-08-31] MEDS: PANTOPRAZOLE SODIUM 40 MG VIAL IV SCH (09:00)
[2016-08-31] MEDS: SODIUM CHLORIDE 0.9% FLUSH 5 ML FLUSH IV FLUSH SCH ×2 (09:00→21:57)
[2016-08-31] MEDS: PROPRANOLOL HCL 10 MG TAB PO SCH ×2 (09:00→21:57)
[2016-08-31] MEDS: DOCUSATE SODIUM 50 MG/SENNA 8.6 MG TAB PO SCH ×2 (09:00→21:57)
[2016-08-31] MEDS: ONDANSETRON HCL 4 MG/2 ML VIAL IV PRN ×2 (09:30→17:17)
[2016-08-31] MEDS ORDERED: PNEUMOCOCCAL POLYVALENT INJ 25 MCG/0.5 ML SYR IM ONE (10:00)
[2016-08-31] MEDS ORDERED: INFLUENZA VIRUS VACCINE (QUADRIVALENT) 0.5 ML SYR IM ONE (10:00)
--- NOTE | 2016-08-31 10:24 | PD.CONS ---
History of Present Illness Service Infectious disease Consult Requested By Dr. Kevin Mckeon Reason for Consult Evaluate patient with fever and leukocytosis, has abnormal CT chest Primary Care Physician Ming Cabrera DO Diagnoses: History of Present Illness Patient seen and examined. Records reviewed. Patient is a 66-year-old female, with history of bladder cancer, developed invasive cancer with metastatic disease, has been receiving chemotherapy, presented to the hospital with nausea and vomiting, cough and shortness of breath. Her last chemotherapy was 3 days prior to admission, and after that treatment she's had some nausea. She started having vomiting the night prior to admission, and also started having some dry cough with some shortness of breath. Her temperature went up to 99. Her symptoms persisted, and the shortness of breath got worse, so she presented to the hospital for further evaluation and treatment. Since admission she's had fevers up to 101.4. She is still short of breath, and currently on supplemental oxygen. She hasn't been coughing much, and she denies any chest pain. She has not had any nausea and vomiting since she has been in the hospital. There's been no abdominal pain , or diarrhea. She denies any urinary complaints. She denies any significant body aches or joint pains. She has not been around anyone sick. She has a 15- year-old all, and no other exposure to any animals or pets. On admission she is not neutropenic. Her chest x-ray showed a right base infiltrate. Her B natriuretic peptide is greater than 700. Patient feels very weak. Infectious disease consultation has been requested to evaluate the patient. Review of Systems Constitutional: COMPLAINS OF: Fatigue, Fever, Change in appetite Eyes: DENIES: Eye pain Ears, nose, mouth, throat: DENIES: Nasal discharge, Oral lesions, Throat pain, Ear Pain, Sinus Pain, Toothache Respiratory: COMPLAINS OF: Cough, Shortness of breath, DENIES: Hemoptysis, Sputum production Cardiovascular: COMPLAINS OF: Dyspnea on Exertion, DENIES: Chest pain, Palpitations Gastrointestinal: COMPLAINS OF: Constipation, DENIES: Abdominal pain, Diarrhea , Nausea, Vomiting, Difficulty Swallowing, Anorexia Genitourinary: DENIES: Urgency, Dysuria Musculoskeletal: COMPLAINS OF: Back pain, Neck pain, DENIES: Joint pain, Muscle aches, Joint Swelling Integumentary: DENIES: Rash Immunologic/allergic: DENIES: Urticaria Neurologic: COMPLAINS OF: Headache, DENIES: Localized weakness Psychiatric: COMPLAINS OF: Depression, DENIES: Confusion Past Family Social History Allergies: Coded Allergies: Clindamycin (Unverified Allergy, Severe, unknown reaction, 09/02/15) Keflex (Unverified Allergy, Severe, extreme headache, 09/02/15) Penicillin (Verified Allergy, Severe, MAKES ME SLEEPY, 09/02/15) Prednisone (Unverified Allergy, Severe, extreme agitation, 09/02/15) Morphine (Unverified Adverse Reaction, Mild, i.v. n/v, 09/02/15) Past Medical History Iron deficiency anemia. Chronic renal insufficiency. Nephrolithiasis. Migraine headache. Superficial bladder cancer. Metastatic invasive bladder cancer. Anxiety Mitral Valve prolapse Lumbar back pain Past Surgical History Robotic assisted laparoscopic nephroureterectomy Previous cysto and TURBT Laparoscopy with TAYLOR and peritoneal nodule excision. Multiple Cystoscopy. CT-guided bone biopsy. Port placement Kidney stent Active Ordered Medications Tylenol Zithromax Azactam Heparin Dilaudid Insulin Magnesium Amitriptyline Zofran Oxycodone Protonix Potassium Inderal Kelli-Colace Imitrex Vancomycin Social History Occasional wine drinker Ex smoker, used to smoke 1ppd No drug use Physical Exam Vital Signs Vital Signs Date Time Temp Pulse Resp B/P Pulse Ox O2 Delivery O2 Flow Rate FiO2 08/31/16 08:23 94 Nasal Cannula 2.00 08/31/16 08:00 98.3 87 22 139/70 91 08/31/16 08:00 87 08/31/16 07:00 95 Nasal Cannula 2.00 08/31/16 06:00 85 08/31/16 04:00 82 08/31/16 04:00 99.1 82 21 171/79 97 08/31/16 02:00 78 08/31/16 00:00 80 08/31/16 00:00 98.9 80 23 176/76 93 08/30/16 22:00 79 08/30/16 20:36 92 Nasal Cannula 2.00 08/30/16 20:00 98.9 78 20 166/79 94 08/30/16 20:00 78 08/30/16 19:00 94 Nasal Cannula 2.00 08/30/16 18:50 18 08/30/16 18:00 86 08/30/16 16:30 92 Nasal Cannula 2.00 08/30/16 16:00 84 08/30/16 16:00 98.0 84 19 172/81 95 08/30/16 14:00 94 Nasal Cannula 3.00 08/30/16 14:00 89 08/30/16 12:00 98.0 82 16 139/64 96 08/30/16 12:00 82 Physical Exam GENERAL: This is a well-nourished, well-developed female, awake and alert, looks chronically ill appearing, not in any respiratory distress. SKIN: Warm and dry. No generalized rash. No ecchymosis. HEAD: Atraumatic. Normocephalic. Has alopecia. No temporal or scalp tenderness. EYES: [place] conjunctiva, no petechia or hemorrhage. Pupils equal round and reactive. Extraocular motions intact. No scleral icterus. No injection or drainage. ENT: Nose without bleeding, or purulent drainage. Moist oral mucosa. Throat without erythema, or exudate. Uvula midline. Airway patent. NECK: Trachea midline. No JVD or lymphadenopathy. Supple, nontender, no meningeal signs. CARDIOVASCULAR: Regular rate and rhythm without murmurs, gallops, or rubs. RESPIRATORY: Breath sounds equal bilaterally. No wheezes, or rhonchi. Decreased BS at bases, with some rales at bases, no E to A changes. Port in L upper chest, accessed, has no evidence of infection GASTROINTESTINAL: Abdomen soft, non-tender, nondistended. Bowel sounds are present and normoactive. No guarding. Has healed incisions compatible with surgical history. MUSCULOSKELETAL: Extremities without clubbing, cyanosis, or edema. No joint effusion, or edema noted. No calf tenderness. Negative Homans sign bilaterally. NEUROLOGICAL: Awake and alert. Cranial nerves II through XII intact. Motor and sensory grossly within normal limits. Five out of 5 muscle strength in all muscle groups. Normal speech. PSYCH: Calm and cooperative LINE: Port with no evidence of infection : Manriquez cath in place, urine looks clear Laboratory Laboratory Tests Test 08/30/16 08/31/16 13:30 05:30 Nasal Screen MRSA (PCR) NEGATIVE White Blood Count 14.1 Red Blood Count 3.33 Hemoglobin 10.2 Hematocrit 29.7 Mean Corpuscular Volume 89.3 Mean Corpuscular Hemoglobin 30.7 Mean Corpuscular Hemoglobin 34.3 Concent Red Cell Distribution Width 14.3 Platelet Count 199 Mean Platelet Volume 8.8 Sodium Level 137 Potassium Level 3.3 Chloride Level 102 Carbon Dioxide Level 27.4 Anion Gap 8 Blood Urea Nitrogen 17 Creatinine 1.26 Estimat Glomerular Filtration 42 Rate Random Glucose 93 Calcium Level 8.2 Date/Time Procedure Status Source Growth 08/30/16 06:30 Urine Culture Received Urine Clean Catch Pending 08/30/16 06:30 Streptococcus pneumoniae Antigen (M - Final Complete Urine Catheterized Urine PRESUMPTIVE NEGATIVE FOR STREPTOCOCCU... 08/30/16 04:50 Aerobic Blood Culture Received Blood Peripheral Pending 08/30/16 04:50 Anaerobic Blood Culture Received Blood Peripheral Pending Result Diagram: 08/31/1652908/31/1630 Imaging RADIOLOGY STUDIES/FILMS REVIEWED Chest X-Ray 08/30/16 0417 Signed Impressions: Service Date/Time: August 05:06 - CONCLUSION: Right lower lobe infiltrate. Ronald Robbins Jr., MD CT Angiography 08/30/16 0000 Signed Impressions: Service Date/Time: August 09:21 - CONCLUSION: 1. No evidence for pulmonary embolism. 2. Scattered groundglass densities possibly interstitial edema. 3. Bibasilar densities likely atelectasis. 4. Small pleural effusions, greater on the right. 5. Severe emphysema. Yevgeniy Marsh MD Abdomen/Pelvis CT 08/30/16 0000 Signed Impressions: Service Date/Time: August 09:21 - CONCLUSION: 1. Soft tissue and bony destructive mass in the left hemipelvis measuring over 5 cm in diameter characteristic of metastatic renal cell carcinoma. Postoperative left nephrectomy. 2. Small bilateral pleural effusions with basilar lung atelectasis. 3. No gastric distention. No bowel obstruction, free fluid or free air. Willie Landa MD Assessment and Plan Assessment and Plan IMPRESSION Febrile illness, with respiratory symptoms and abnormal CXR and CT chest - CAP, patient immunocompromised from underlying malignancy and chemo, not neutropenic - also with some pyuria, no symptoms Bladder CA with metastatic disease Renal insufficiency Multiple Abx adverse reactions RECOMMENDATION Cefepime Zithromax Vancomycin Check legionella Ag and resp panel Influenza Ag Follow C/S Monitor progress I will follow along with you Thank you for this consultation Dr Garza covering this weekend Discussed Condition With Explained plan to patient and family D/W Monie Sams MD Aug 31, 2016 10:24
--- NOTE | 2016-08-31 10:51 | PD.ONC.PN ---
Subjective Subjective Remarks Afebrile overnight. patient states she feels better than yesterday but still feels nauseated. She is asking to have her diet advanced as she thinks she could tolerate a regular diet. Objective Data Date Time Temp Pulse Resp B/P Pulse Ox O2 Delivery O2 Flow Rate FiO2 08/31/16 08:23 94 Nasal Cannula 2.00 08/31/16 08:00 98.3 87 22 139/70 91 08/31/16 08:00 87 08/31/16 07:00 95 Nasal Cannula 2.00 08/31/16 06:00 85 08/31/16 04:00 82 08/31/16 04:00 99.1 82 21 171/79 97 08/31/16 02:00 78 08/31/16 00:00 80 08/31/16 00:00 98.9 80 23 176/76 93 08/30/16 22:00 79 08/30/16 20:36 92 Nasal Cannula 2.00 08/30/16 20:00 98.9 78 20 166/79 94 08/30/16 20:00 78 08/30/16 19:00 94 Nasal Cannula 2.00 08/30/16 18:50 18 08/30/16 18:00 86 08/30/16 16:30 92 Nasal Cannula 2.00 08/30/16 16:00 84 08/30/16 16:00 98.0 84 19 172/81 95 08/30/16 14:00 94 Nasal Cannula 3.00 08/30/16 14:00 89 08/30/16 12:00 98.0 82 16 139/64 96 08/30/16 12:00 82 08/31/16 08/31/16 08/31/16 07:00 15:00 23:00 Intake Total 839 ml Output Total 1000 ml Balance -161 ml Result Diagram: 08/31/16 0530 08/31/16 0530 Laboratory Results Laboratory Tests Test 08/30/16 08/31/16 13:30 05:30 Nasal Screen MRSA (PCR) NEGATIVE White Blood Count 14.1 TH/MM3 Red Blood Count 3.33 MIL/MM3 Hemoglobin 10.2 GM/DL Hematocrit 29.7 % Mean Corpuscular Volume 89.3 FL Mean Corpuscular Hemoglobin 30.7 PG Mean Corpuscular Hemoglobin 34.3 % Concent Red Cell Distribution Width 14.3 % Platelet Count 199 TH/MM3 Mean Platelet Volume 8.8 FL Sodium Level 137 MEQ/L Potassium Level 3.3 MEQ/L Chloride Level 102 MEQ/L Carbon Dioxide Level 27.4 MEQ/L Anion Gap 8 MEQ/L Blood Urea Nitrogen 17 MG/DL Creatinine 1.26 MG/DL Estimat Glomerular Filtration 42 ML/MIN Rate Random Glucose 93 MG/DL Calcium Level 8.2 MG/DL Culture Results Microbiology Date/Time Procedure Status Source Growth 08/30/16 04:30 Aerobic Blood Culture Received Blood Peripheral Pending 08/30/16 04:30 Anaerobic Blood Culture Received Blood Peripheral Pending 08/30/16 04:50 Aerobic Blood Culture Received Blood Peripheral Pending 08/30/16 04:50 Anaerobic Blood Culture Received Blood Peripheral Pending 08/30/16 06:30 Urine Culture Received Urine Clean Catch Pending 08/30/16 06:30 Streptococcus pneumoniae Antigen (M - Final Complete Urine Catheterized Urine PRESUMPTIVE NEGATIVE FOR STREPTOCOCCU... Administered Medications Medications (Trade) Dose Ordered Sig/Nicko Route PRN Reason Start Time Stop Time Status Last Admin Dose Admin IV Flush 2 ml 2 ml UNSCH PRN IVF FLUSH AFTER USING IV ACCESS 08/30/16 04:15 08/30/16 05:53 Potassium Chloride (KCl 20 Meq Premix Inj) 100 ml @ 50 mls/hr Q2H PRN IV For Potassium 3.3 - 3.5 mEq/L 08/30/16 06:30 08/31/16 09:47 Oxycodone HCl (Roxicodone) 5 mg Q4H PRN PO pain 1-7 08/30/16 06:30 08/31/16 04:44 IV Flush (NS Flush) 2 ml BID IV FLUSH 08/30/16 09:00 08/31/16 09:00 Pantoprazole Sodium (Protonix Inj) 40 mg DAILY IV 08/30/16 09:00 08/31/16 09:00 Ondansetron HCl (Zofran Inj) 4 mg Q6H PRN IV NAUSEA OR VOMITING 08/30/16 06:30 08/31/16 09:30 Senna/Docusate Sodium (Kelli-Colace) 2 tab BID PO 08/30/16 09:00 08/31/16 09:00 Heparin Sodium (Porcine) 5000 units 5,000 units Q8H SQ 08/30/16 06:30 08/31/16 05:44 Vancomycin HCl 1600 mg/Sodium Chloride 516 ml @ 258 mls/hr Q24H IV 08/30/16 09:00 08/31/16 09:00 Aztreonam 1000 mg/ Sodium Chloride 100 ml @ 200 mls/hr Q8H IV 08/30/16 08:00 08/31/16 08:00 Azithromycin/ Sodium Chloride (Zithromax Inj/ NS 250 ml Inj) 250 ml @ 250 mls/hr Q24H IV 08/31/16 06:00 08/31/16 05:44 Nortriptyline HCl (Pamelor) 10 mg HS PO 08/30/16 21:00 08/30/16 21:21 Propranolol HCl (Inderal) 10 mg Q12HR PO 08/30/16 21:00 08/31/16 09:00 Sumatriptan Succinate (Imitrex) 100 mg ONCE PRN PO MIGRAINE HEADACHE 08/30/16 16:45 09/04/16 16:44 08/31/16 05:41 Objective Remarks GENERAL: Middle aged female, sitting up in chair next to bed in [facility]. SKIN: Warm and dry. HEAD: Normocephalic. EYES: No injection or drainage. NECK: Supple, trachea midline. CARDIOVASCULAR: Regular rate and rhythm RESPIRATORY: Breath sounds equal bilaterally. No accessory muscle use. GASTROINTESTINAL: Abdomen soft, non-tender, nondistended. EXTREMITIES: No cyanosis NEUROLOGICAL: No obvious focal deficit. Awake, alert, and oriented x3. Assessment/Plan Problem List: (1) Right lower lobe pneumonia Status: Acute Plan: --on multiple abx. ID service following --CT angiogram was negative for pulmonary embolism. +bibasilar densities likely atelectasis. -- (2) Urothelial carcinoma Status: Acute Plan: --history of noninvasive papillary urothelial cancer with high-grade features. --developed recurrent disease intraperitoneally and subsequently developed invasive cancer. --is receiving palliative chemotherapy with MVAC coordinated with [facility] in [place]. --s/p cycle 2 of MVAC chemotherapy. --is pending a followup appointment at [facility] for participation in a clinical trial. (3) Antineoplastic chemotherapy induced anemia Status: Acute Plan: --no specific therapy required --monitor for bleeding Assessment 66y/o female with metastatic/locally advanced urothelial cancer. History: Two days after chemotherapy, she had a significant amount of nausea, vomiting and became short of breath. In the emergency room, she was found to have early infiltrate and B-natriuretic peptide was 713. h/o Iron deficiency anemia. Chronic renal insufficiency. Nephrolithiasis. Migraine headache. Superficial bladder cancer. Metastatic invasive bladder cancer. Plan 1. continue supportive care 2. antibiotics per ID 3. monitor CBC Attending Statement The exam, history, and the medical decision-making described in the above note were completed with the assistance of the mid-level provider. I reviewed and agree with the findings presented. I attest that I had a [id number] encounter with the patient on the same day, and personally performed and documented my assessment and findings in the medical record. Pt seen and examined. Transferred to oncology floor. Still has migraine GRANDE, still has nausea, anorexia. Supplement with IVF hydration, replace K, monitor over night. DC FS, glucose normal. Monitor for fever. Desi Al Aug 31, 2016 10:50 Nelda Spaulding MD Aug 31, 2016 18:13
[2016-08-31] MEDS: CEFEPIME INJ 2,000 MG in SODIUM CHLORIDE 0.9% INJ 100 ML IV SCH (14:28)
--- NOTE | 2016-08-31 15:03 | EC ---
Study Study Date:08/31/2016 STUDY CONCLUSIONS SUMMARY - Procedure narrative: Transthoracic echocardiography. Image quality was fair. The study was technically limited due to poor acoustic window availability. Scanning was performed from the parasternal, apical, and subcostal acoustic windows. - Left ventricle: The cavity size was normal. Wall thickness was normal. Systolic function was normal. The estimated ejection fraction was in the range of 55% to 60%. Although no diagnostic regional wall motion abnormality was identified, this possibility cannot be completely excluded on the basis of this study. Left ventricular diastolic function parameters were normal. - Mitral valve: Mild regurgitation. - Left atrium: The atrium was mildly dilated. - Pulmonary arteries: PA peak pressure: 54mm Hg (S). If LV function is below 40, please consider prescribing an ACEI or ARB or document rationale for non-use. PROCEDURE DATA STUDY STATUS: Elective. Procedure: Transthoracic echocardiography. Image quality was fair. The study was technically limited due to poor acoustic window availability. Scanning was performed from the parasternal, apical, and subcostal acoustic windows. Study completion: The patient tolerated the procedure well. Transthoracic echocardiography. M-mode, complete 2D, complete spectral Doppler, and color Doppler. Patient status: Inpatient. CARDIAC ANATOMY LEFT VENTRICLE: The cavity size was normal. Wall thickness was normal. Systolic function was normal. The estimated ejection fraction was in the range of 55% to 60%. Although no diagnostic regional wall motion abnormality was identified, this possibility cannot be completely excluded on the basis of this study. Left ventricular diastolic function parameters were normal. AORTIC VALVE: Probably trileaflet. Doppler: There was no stenosis. No significant regurgitation. MITRAL VALVE: The valve appears to be grossly normal. Doppler: There was no evidence for stenosis. Mild regurgitation. LEFT ATRIUM: The atrium was mildly dilated. RIGHT VENTRICLE: The cavity size was normal. PULMONIC VALVE: The valve appears to be grossly normal. Doppler: There was no evidence for stenosis. Trace regurgitation. TRICUSPID VALVE: The valve appears to be grossly normal. Doppler: There was no evidence for stenosis. Trace to mild regurgitation. BASIC MEASUREMENTS ADULT Normal Left ventricle LV internal dimension, ED, chordal level, *41.5 mm 43-52 PLAX LV internal dimension, ES, chordal level, 31 mm 23-38 PLAX Fractional shortening, chordal level, PLAX *25 % >29 LV posterior wall thickness, ED 8.99 mm IVS/LVPW ratio, ED 1.21 <1.3 Ventricular septum Septal thickness, ED 10.9 mm Aortic valve Leaflet separation 20 mm 15-26 Right ventricle RV internal dimension, ED, PLAX 23.5 mm 19-38 BASIC MEASUREMENTS ADULT Normal Aortic valve Leaflet separation 20 mm 15-26 Aorta Root diameter, ED 27 mm 20-37 Left atrium Anterior-posterior dimension, ES *41 mm 19-40 LA/aortic root ratio 1.52 DOPPLER MEASUREMENTS ADULT Normal Main pulmonary artery Pressure, S *54 mm Hg =30 Tricuspid valve Regurgitant peak velocity 331 cm/s Peak RV-RA gradient, S 44 mm Hg Maximal regurgitant velocity 331 cm/s Systemic veins Estimated CVP 10 mm Hg Right ventricle RV pressure, S *54 mm Hg <30 LEGEND: Mean values are shown as u=mean value. Asterisk (*) ramírez values outside specified normal range. Prepared and signed by Hang Garcia [id number]
[2016-08-31 17:32] LABS: BOR. HOLMESII NOT DETECTED (NOT DETECT); BOR. PARA/BRONCH NOT DETECTED (NOT DETECT); BOR. PERTUSSIS NOT DETECTED (NOT DETECT); INFLUENZA B NOT DETECTED (NOT DETECT); RESP SYNCYTIAL VIRUS A NOT DETECTED (NOT DETECT); RESP SYNCYTIAL VIRUS B NOT DETECTED (NOT DETECT)
--- NOTE | 2016-08-31 18:08 | HHI.PR ---
Subjective Remarks Still with mild shortness of breath however has improved. Overall pain currently controlled. No fevers or chills Objective Vitals Vital Signs Date Time Temp Pulse Resp B/P Pulse Ox O2 Delivery O2 Flow Rate FiO2 08/31/16 16:00 98.0 85 16 141/65 92 08/31/16 16:00 85 08/31/16 14:00 91 08/31/16 12:00 98.3 88 19 164/74 93 08/31/16 12:00 88 08/31/16 11:30 20 08/31/16 10:00 83 08/31/16 08:23 94 Nasal Cannula 2.00 08/31/16 08:00 98.3 87 22 139/70 91 08/31/16 08:00 87 08/31/16 07:00 95 Nasal Cannula 2.00 08/31/16 06:00 85 08/31/16 04:00 82 08/31/16 04:00 99.1 82 21 171/79 97 08/31/16 02:00 78 08/31/16 00:00 80 08/31/16 00:00 98.9 80 23 176/76 93 08/30/16 22:00 79 08/30/16 20:36 92 Nasal Cannula 2.00 08/30/16 20:00 98.9 78 20 166/79 94 08/30/16 20:00 78 08/30/16 19:00 94 Nasal Cannula 2.00 08/30/16 18:00 86 I/O 08/30/16 08/30/16 08/30/16 08/31/16 08/31/16 08/31/16 07:00 15:00 23:00 07:00 15:00 23:00 Intake Total 1504 ml 1314 ml 839 ml 1594 ml Output Total 1900 ml 1000 ml 1000 ml 1200 ml Balance -396 ml 314 ml -161 ml 394 ml Intake Oral 480 ml 1000 ml 600 ml 960 ml IV Total 1024 ml 314 ml 239 ml 634 ml Output Urine Total 1900 ml 1000 ml 1000 ml 1200 ml # Bowel Movements 0 0 0 0 Result Diagram: 08/31/16 0530 08/31/16 0530 Other Results Microbiology Date/Time Procedure Status Source Growth 08/31/16 13:30 Legionella Antigen Received Urine Catheterized Urine Pending 08/31/16 13:30 Influenza Types A,B Antigen (LUCY) - Final Complete Nasal Washing NEGATIVE FOR FLU A AND B ANTIGEN.... 08/30/16 06:30 Urine Culture - Preliminary Resulted Urine Clean Catch Gram Negative Omar 08/30/16 06:30 Streptococcus pneumoniae Antigen (M - Final Complete Urine Catheterized Urine PRESUMPTIVE NEGATIVE FOR STREPTOCOCCU... 08/30/16 04:50 Aerobic Blood Culture - Preliminary Resulted Blood Peripheral NO GROWTH IN 1 DAY 08/30/16 04:50 Anaerobic Blood Culture - Preliminary Resulted Blood Peripheral NO GROWTH IN 1 DAY Objective Remarks GENERAL: This is a well-nourished, well-developed patient, in no apparent distress. CARDIOVASCULAR: Regular rate and rhythm RESPIRATORY: Diminished on bases with few crackles bilaterally GASTROINTESTINAL: Abdomen soft, non-tender, nondistended. Normal active bowel sounds MUSCULOSKELETAL: Extremities without clubbing, cyanosis, with trace edema NEURO: Alert & Oriented x4 to person, place, time, situation. Moves all ext x4 A/P Assessment and Plan 66y/o female with metastatic/locally advanced urothelial cancer. Admitted after two days of palliative chemotherapy developed acutely short of breath along with significant amount of nausea or vomiting. It was found the patient early infiltrate and with early pneumonia and which infectious disease recommends continuing antibiotics due to recent chemotherapy. Continue Zithromax, vancomycin, cefepime IV, oxygen support. CT pulmonary angiogram obtained shows no PE. Currently on 2 L and will transfer out of the intensive care unit to oncology unit for continue medical management. Anemialikely due to chemotherapy Chronic kidney disease stage IIImonitor, avoid nephrotoxins Hypokalemiasupplement Metastatic invasive bladder cancer with recent chemotherapy.Continue current management per oncology. Continue pain control. DVT prophylaxis. Heparin SQ. Discharge Planning Home when clinically stable and cleared by oncology Radha Warner MD Aug 31, 2016 18:08
[2016-08-31] MEDS ORDERED: D5-NS + KCL 20 MEQ INJ 1,000 ML IV SCH (18:15)
[2016-08-31] MEDS ORDERED: RESP: ALBUTEROL 2.5 MG/IPRATROPIUM 0.5 MG NEB (PRN) NEB (18:15)
[2016-08-31] MEDS: PROCHLORPERAZINE MALEATE 10 MG TAB PO PRN (21:56)
[2016-08-31] MEDS: NORTRIPTYLINE HCL 10 MG CAP PO SCH (21:57)
[2016-09-01] VITALS (7 sets, daily range): BP systolic 137–160; BP diastolic 65–78; PULSE 74–93; RESP 18–20; TEMP 97.9–99.6; O2SAT 90–96
[2016-09-01] MEDS: SUMAtriptan SUCCINATE 50 MG TAB PO PRN ×3 (01:00→22:18)
[2016-09-01] MEDS: CEFEPIME INJ 2,000 MG in SODIUM CHLORIDE 0.9% INJ 100 ML IV SCH ×2 (01:00→13:40)
[2016-09-01] MEDS: CHLORHEXIDINE GLUCONATE 2 % 1 PACK (2 CLOTHS) TOP SCH (03:35)
[2016-09-01] MEDS: HEPARIN SODIUM - SQ 10,000 UNITS/ML VIAL SQ SCH ×3 (05:22→22:17)
[2016-09-01] MEDS: AZITHROMYCIN INJ 250 MG in SODIUM CHLOR 0.9% 250 ML INJ 250 ML IV SCH (05:22)
[2016-09-01] MEDS: PANTOPRAZOLE SODIUM 40 MG VIAL IV SCH (09:00)
[2016-09-01] MEDS: PROPRANOLOL HCL 10 MG TAB PO SCH ×2 (09:00→19:59)
[2016-09-01] MEDS: DOCUSATE SODIUM 50 MG/SENNA 8.6 MG TAB PO SCH ×2 (09:00→19:59)
[2016-09-01] MEDS: SODIUM CHLORIDE 0.9% FLUSH 5 ML FLUSH IV FLUSH SCH ×2 (09:00→20:00)
[2016-09-01] MEDS: VANCOMYCIN INJ 1,600 MG in SODIUM CHLORID 0.9% 500 ML INJ 500 ML IV SCH (09:00)
--- NOTE | 2016-09-01 09:52 | HHI.PR ---
Subjective Remarks Complaints of neck pain. Says valium helps usually. Cough nonproductive. No chest pain. No fever or chills. Says has pain where the cancer is and is worse when coughing. Somehow feels improved. Objective Vitals Vital Signs Date Time Temp Pulse Resp B/P Pulse Ox O2 Delivery O2 Flow Rate FiO2 09/01/16 09:11 96 Nasal Cannula 2.00 09/01/16 09:09 Nasal Cannula 2.00 09/01/16 08:00 99.6 93 20 160/70 93 09/01/16 04:00 98.7 81 18 156/74 94 09/01/16 03:35 16 09/01/16 00:00 98.1 74 18 137/65 93 08/31/16 21:37 2.00 08/31/16 20:05 92 Nasal Cannula 2.00 08/31/16 20:00 98.4 78 18 160/70 94 08/31/16 18:00 99.2 76 18 124/76 94 08/31/16 16:00 98.0 85 16 141/65 92 08/31/16 16:00 85 08/31/16 14:00 91 08/31/16 12:00 98.3 88 19 164/74 93 08/31/16 12:00 88 08/31/16 11:30 20 08/31/16 10:00 83 I/O 08/31/16 08/31/16 08/31/16 09/01/16 09/01/16 09/01/16 07:00 15:00 23:00 07:00 15:00 23:00 Intake Total 839 ml 1594 ml 480 ml 480 ml Output Total 1000 ml 1200 ml 750 ml 1000 ml Balance -161 ml 394 ml -270 ml -520 ml Intake Oral 600 ml 960 ml 480 ml 480 ml IV Total 239 ml 634 ml Output Urine Total 1000 ml 1200 ml 750 ml 1000 ml # Bowel Movements 0 0 Result Diagram: 08/31/1652908/31/16529 Imaging Last Impressions Chest X-Ray 08/30/16 0417 Signed Impressions: Service Date/Time: August 05:06 - CONCLUSION: Right lower lobe infiltrate. Ronald Robbins Jr., MD CT Angiography 08/30/16 0000 Signed Impressions: Service Date/Time: August 09:21 - CONCLUSION: 1. No evidence for pulmonary embolism. 2. Scattered groundglass densities possibly interstitial edema. 3. Bibasilar densities likely atelectasis. 4. Small pleural effusions, greater on the right. 5. Severe emphysema. Yevgeniy Marsh MD Abdomen/Pelvis CT 08/30/16 0000 Signed Impressions: Service Date/Time: August 09:21 - CONCLUSION: 1. Soft tissue and bony destructive mass in the left hemipelvis measuring over 5 cm in diameter characteristic of metastatic renal cell carcinoma. Postoperative left nephrectomy. 2. Small bilateral pleural effusions with basilar lung atelectasis. 3. No gastric distention. No bowel obstruction, free fluid or free air. Willie Landa MD Objective Remarks GENERAL: This is a well-nourished, well-developed patient, in no apparent distress. CARDIOVASCULAR: Regular rate and rhythm RESPIRATORY: Diminished on bases with few crackles bilaterally GASTROINTESTINAL: Abdomen soft, non-tender, nondistended. Normal active bowel sounds MUSCULOSKELETAL: Extremities without clubbing, cyanosis, with trace edema NEURO: Alert & Oriented x4 to person, place, time, situation. Moves all ext x4 A/P Assessment and Plan 66y/o female with metastatic/locally advanced urothelial cancer. Admitted after two days of palliative chemotherapy developed acutely short of breath along with significant amount of nausea or vomiting. It was found the patient early infiltrate and with early pneumonia and which infectious disease recommends continuing antibiotics due to recent chemotherapy. Continue Zithromax, vancomycin, cefepime IV, oxygen support. ID Dr Adams following. CT pulmonary angiogram obtained shows no PE. Currently on 2 L and will transferred out of the intensive care unit to oncology unit for continue medical management. Anemialikely due to chemotherapy Chronic kidney disease stage IIImonitor, avoid nephrotoxins Hypokalemiasupplement, monitor and replace as need. Metastatic invasive bladder cancer with recent chemotherapy.Continue current management per oncology. Continue pain control. Neck pain /muscle spasm. Add valium as patient says she had this pain before and only valium helps. DVT prophylaxis. Heparin SQ. Discharge Planning Home when clinically stable and cleared by oncology Discussed with Dr Spaulding, patient. family at bedside. Soraya Knight MD Sep 01, 2016 09:52
--- NOTE | 2016-09-01 10:14 | PD.ONC.PN ---
Subjective Subjective Remarks c/o headache, needs Imitrex No BM yet nausea improve SOB improve wants prince out Objective Data Date Time Temp Pulse Resp B/P Pulse Ox O2 Delivery O2 Flow Rate FiO2 09/01/16 09:11 96 Nasal Cannula 2.00 09/01/16 09:09 Nasal Cannula 2.00 09/01/16 08:00 99.6 93 20 160/70 93 09/01/16 04:00 98.7 81 18 156/74 94 09/01/16 03:35 16 09/01/16 00:00 98.1 74 18 137/65 93 08/31/16 21:37 2.00 08/31/16 20:05 92 Nasal Cannula 2.00 08/31/16 20:00 98.4 78 18 160/70 94 08/31/16 18:00 99.2 76 18 124/76 94 08/31/16 16:00 98.0 85 16 141/65 92 08/31/16 16:00 85 08/31/16 14:00 91 08/31/16 12:00 98.3 88 19 164/74 93 08/31/16 12:00 88 08/31/16 11:30 20 Result Diagram: 08/31/16 0530 08/31/16 0530 Laboratory Results Laboratory Tests Test 08/31/16 13:30 Adenovirus (PCR) NOT DETECTED Bordetella holmesii (PCR) NOT DETECTED Bordetella pertussis DNA (PCR) NOT DETECTED Bordetella parapertussis DNA NOT DETECTED (PCR) Human Metapneumovirus (PCR) NOT DETECTED Influenza Type A (RT-PCR) NOT DETECTED Influenza Type A (H1) (PCR) NOT DETECTED Influenza Type A (H3) (PCR) NOT DETECTED Parainfluenza Type 1 (PCR) NOT DETECTED Parainfluenza Type 2 (PCR) NOT DETECTED Parainfluenza Type 3 (PCR) NOT DETECTED Parainfluenza Type 4 (PCR) NOT DETECTED Resp Syncytial Virus Type A NOT DETECTED (PCR) Resp Syncytial Virus Type B NOT DETECTED (PCR) Rhinovirus (PCR) NOT DETECTED Culture Results Microbiology Date/Time Procedure Status Source Growth 08/30/16 04:30 Aerobic Blood Culture - Preliminary Resulted Blood Peripheral NO GROWTH IN 1 DAY 08/30/16 04:30 Anaerobic Blood Culture - Preliminary Resulted Blood Peripheral NO GROWTH IN 1 DAY 08/30/16 04:50 Aerobic Blood Culture - Preliminary Resulted Blood Peripheral NO GROWTH IN 1 DAY 08/30/16 04:50 Anaerobic Blood Culture - Preliminary Resulted Blood Peripheral NO GROWTH IN 1 DAY 08/30/16 06:30 Urine Culture - Preliminary Resulted Urine Clean Catch Gram Negative Omar 08/30/16 06:30 Streptococcus pneumoniae Antigen (M - Final Complete Urine Catheterized Urine PRESUMPTIVE NEGATIVE FOR STREPTOCOCCU... 08/31/16 13:30 Influenza Types A,B Antigen (LUCY) - Final Complete Nasal Washing NEGATIVE FOR FLU A AND B ANTIGEN.... 08/31/16 13:30 Legionella Antigen Received Urine Catheterized Urine Pending Administered Medications Medications (Trade) Dose Ordered Sig/Nicko Route PRN Reason Start Time Stop Time Status Last Admin Dose Admin Oxycodone HCl (Roxicodone) 5 mg Q4H PRN PO pain 1-7 08/30/16 06:30 09/01/16 07:41 IV Flush (NS Flush) 2 ml BID IV FLUSH 08/30/16 09:00 09/01/16 09:00 Pantoprazole Sodium (Protonix Inj) 40 mg DAILY IV 08/30/16 09:00 09/01/16 09:00 Ondansetron HCl (Zofran Inj) 4 mg Q6H PRN IV NAUSEA OR VOMITING 08/30/16 06:30 08/31/16 17:17 Senna/Docusate Sodium (Kelli-Colace) 2 tab BID PO 08/30/16 09:00 09/01/16 09:00 Heparin Sodium (Porcine) 5000 units 5,000 units Q8H SQ 08/30/16 06:30 09/01/16 05:22 Vancomycin HCl 1600 mg/Sodium Chloride 516 ml @ 258 mls/hr Q24H IV 08/30/16 09:00 09/01/16 09:00 Azithromycin/ Sodium Chloride (Zithromax Inj/ NS 250 ml Inj) 250 ml @ 250 mls/hr Q24H IV 08/31/16 06:00 09/01/16 05:22 Nortriptyline HCl (Pamelor) 10 mg HS PO 08/30/16 21:00 08/31/16 21:57 Propranolol HCl (Inderal) 10 mg Q12HR PO 08/30/16 21:00 09/01/16 09:00 Sumatriptan Succinate 100 mg 100 mg ONCE PRN PO MIGRAINE HEADACHE 08/30/16 16:45 09/04/16 16:44 09/01/16 01:00 Cefepime HCl/ Sodium Chloride (Maxipime Inj/NS Inj) 100 ml @ 200 mls/hr Q12H IV 08/31/16 13:00 09/01/16 01:00 Prochlorperazine Maleate (Compazine) 10 mg Q6H PRN PO NAUSEA OR VOMITING 08/31/16 20:45 08/31/16 21:56 Objective Remarks GENERAL: Middle aged female, sitting up in chair next to bed- tired appearing SKIN: Warm and dry. HEAD: Alopecia. EYES: No injection or drainage. NECK: Supple, trachea midline. CARDIOVASCULAR: Regular rate and rhythm RESPIRATORY: Breath sounds equal bilaterally. No accessory muscle use. GASTROINTESTINAL: Abdomen soft, non-tender, nondistended. EXTREMITIES: No cyanosis NEUROLOGICAL: No obvious focal deficit. Awake, alert, and oriented x3. Assessment/Plan Problem List: (1) Right lower lobe pneumonia Status: Acute Plan: 09/01/16. Improving, less SOB. Follow by ID, no fevers, no neutropenia, Abx continue pending culture, Day 2 today. --on multiple abx. ID service following --CT angiogram was negative for pulmonary embolism. +bibasilar densities likely atelectasis. -- (2) Urothelial carcinoma Status: Acute Plan: 09/01/16. Chemo related toxicity start to improve. Nausea improve, no vomiting, less tired. 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 --developed recurrent disease intraperitoneally and subsequently developed invasive cancer. --[place] [facility] [place] [facility] [place]. --s/p cycle 2 of MVAC chemotherapy. --is pending a followup appointment at [facility] for participation in a clinical trial. (3) Antineoplastic chemotherapy induced anemia Status: Acute Plan: 09/01/16. No specific therapy for anemia and CRI, appear baseline. Replace K or mag if low. No transfusion needed for now. --no specific therapy required --monitor for bleeding Assessment 66y/o female with metastatic/locally advanced urothelial cancer. History: Two days after chemotherapy, she had a significant amount of nausea, vomiting and became short of breath. In the emergency room, she was found to have early infiltrate and B-natriuretic peptide was 713. h/o Iron deficiency anemia. Chronic renal insufficiency. Nephrolithiasis. Migraine headache. Superficial bladder cancer. Metastatic invasive bladder cancer. Plan 1. continue supportive care 2. antibiotics per ID- culture still pending 3. monitor CBC 4. follow K and magnesium. 5. Discussed with Dr. Knight 6. DC prince- OK shower 7. Add stool softner 8. Optimize Imitrex. Nelda Spaulding MD Sep 01, 2016 10:14
[2016-09-01 15:37] LABS: HEMATOCRIT 29.2 % (35.0-46.0); MEAN CELL VOLUME 88.2 FL (80.0-100.0); MEAN CORPUSCULAR HEMOGLOBIN 31.3 PG (27.0-34.0); MEAN CORPUSCULAR HGB CONC 35.5 % (32.0-36.0); PLATELET COUNT 165 TH/MM3 (150-450); RED BLOOD COUNT 3.31 MIL/MM3 (4.00-5.30); RED CELL DISTRIBUTION WIDTH 14.3 % (11.6-17.2); REVIEW FLAG FINAL; WHITE BLOOD COUNT 24.7 TH/MM3 (4.0-11.0)
[2016-09-01 15:55] LABS: BICARBONATE 26.4 MEQ/L (21.0-32.0); MAGNESIUM 1.6 MG/DL (1.5-2.5); POTASSIUM 3.1 MEQ/L (3.5-5.1)
[2016-09-01] MEDS: PROCHLORPERAZINE MALEATE 10 MG TAB PO PRN (16:02)
[2016-09-01] MEDS ORDERED: POTASSIUM CHLORIDE 20 MEQ CONTROLLED RELEASE TAB PO ONE (18:15)
[2016-09-01] MEDS: DIAZEPAM 2 MG TAB PO PRN (19:58)
[2016-09-01] MEDS: NORTRIPTYLINE HCL 10 MG CAP PO SCH (19:58)
[2016-09-02] VITALS (7 sets, daily range): BP systolic 142–192; BP diastolic 64–93; PULSE 80–88; RESP 16–20; TEMP 97.1–98.6; O2SAT 93–96
[2016-09-02] MEDS: CEFEPIME INJ 2,000 MG in SODIUM CHLORIDE 0.9% INJ 100 ML IV SCH ×2 (00:57→14:44)
[2016-09-02] MEDS: CHLORHEXIDINE GLUCONATE 2 % 1 PACK (2 CLOTHS) TOP SCH (04:00)
[2016-09-02] MEDS: HEPARIN SODIUM - SQ 10,000 UNITS/ML VIAL SQ SCH ×3 (05:49→22:53)
[2016-09-02] MEDS: AZITHROMYCIN INJ 250 MG in SODIUM CHLOR 0.9% 250 ML INJ 250 ML IV SCH (05:50)
[2016-09-02] MEDS ORDERED: PHARMACY ORDERED LAB XX ONE (08:45)
[2016-09-02] MEDS: PANTOPRAZOLE SODIUM 40 MG VIAL IV SCH (08:49)
[2016-09-02] MEDS: VANCOMYCIN INJ 1,600 MG in SODIUM CHLORID 0.9% 500 ML INJ 500 ML IV SCH ×2 (08:49→11:11)
[2016-09-02] MEDS: SODIUM CHLORIDE 0.9% FLUSH 5 ML FLUSH IV FLUSH SCH ×2 (08:50→19:59)
[2016-09-02] MEDS: DOCUSATE SODIUM 50 MG/SENNA 8.6 MG TAB PO SCH ×2 (08:50→19:58)
[2016-09-02] MEDS: PROPRANOLOL HCL 10 MG TAB PO SCH ×2 (08:50→19:58)
[2016-09-02] MEDS: SUMAtriptan SUCCINATE 50 MG TAB PO PRN ×2 (10:06→19:58)
[2016-09-02] MEDS ORDERED: POTASSIUM CHLORIDE 20 MEQ CONTROLLED RELEASE TAB PO ONE ×2 (10:15→11:45)
[2016-09-02] MEDS ORDERED: POTASSIUM CHLOR 20 MEQ PREMIX 100 ML IV ONE (10:15)
--- NOTE | 2016-09-02 10:20 | HHI.FPPN ---
Subjective Remarks Patient seen and examined this am. Afebrile this am, worsening leukocytosis on 09/01. Reports no overnight events, Saturating well on 2 L. She states she sometimes forgets to put her oxygen on after returning from the bathroom, and her breathing gets a bit heavy. Eager to go home. No other complaints this morning. Objective Vitals Vital Signs Date Time Temp Pulse Resp B/P Pulse Ox O2 Delivery O2 Flow Rate FiO2 09/02/16 08:00 97.2 85 16 158/74 95 09/02/16 04:00 98.2 88 18 169/79 94 09/02/16 00:00 97.8 87 17 142/64 93 09/01/16 20:00 95 Nasal Cannula 2.00 09/01/16 20:00 98.2 88 18 160/71 95 09/01/16 17:39 90 21 09/01/16 16:00 97.9 90 18 159/78 90 I/O 09/01/16 09/01/16 09/01/16 09/02/16 09/02/16 09/02/16 07:00 15:00 23:00 07:00 15:00 23:00 Intake Total 480 ml 960 ml 480 ml 240 ml Output Total 1000 ml 1700 ml 500 ml 900 ml 400 ml Balance -520 ml -740 ml -20 ml -660 ml -400 ml Intake Oral 480 ml 960 ml 480 ml 240 ml Output Urine Total 1000 ml 1700 ml 500 ml 900 ml 400 ml # Bowel Movements 1 Result Diagram: 09/01/16 1458 09/01/16 1458 Imaging Last Impressions Chest X-Ray 08/30/16 0417 Signed Impressions: Service Date/Time: August 05:06 - CONCLUSION: Right lower lobe infiltrate. Ronald Robbins Jr., MD CT Angiography 08/30/16 0000 Signed Impressions: Service Date/Time: August 09:21 - CONCLUSION: 1. No evidence for pulmonary embolism. 2. Scattered groundglass densities possibly interstitial edema. 3. Bibasilar densities likely atelectasis. 4. Small pleural effusions, greater on the right. 5. Severe emphysema. Yevgeniy Marsh MD Abdomen/Pelvis CT 08/30/16 0000 Signed Impressions: Service Date/Time: August 09:21 - CONCLUSION: 1. Soft tissue and bony destructive mass in the left hemipelvis measuring over 5 cm in diameter characteristic of metastatic renal cell carcinoma. Postoperative left nephrectomy. 2. Small bilateral pleural effusions with basilar lung atelectasis. 3. No gastric distention. No bowel obstruction, free fluid or free air. Willie Landa MD Objective Remarks GENERAL: tired appearing nad SKIN: Warm and dry. HEAD: Normocephalic. Hairloss. EYES: No scleral icterus. No injection or drainage. NECK: Supple, trachea midline. No JVD or lymphadenopathy. CARDIOVASCULAR: Regular rate and rhythm without murmurs, gallops, or rubs. RESPIRATORY: Breath sounds equal bilaterally. No accessory muscle use. No wheezes appreciates. Some mild coarse breath sounds bilat bases. GASTROINTESTINAL: Abdomen soft, non-tender, nondistended. MUSCULOSKELETAL: No cyanosis, or edema. No calf tenderness bilat. BACK: Nontender without obvious deformity. A/P Assessment and Plan 66y/o female with metastatic/locally advanced urothelial cancer. Admitted after two days of palliative chemotherapy developed acutely short of breath along with significant amount of nausea or vomiting. It was found the patient early infiltrate and with early pneumonia and which infectious disease recommends continuing antibiotics due to recent chemotherapy. Continue Zithromax, vancomycin, cefepime IV, oxygen support. ID Dr Adams following. CT pulmonary angiogram obtained shows no PE. Currently on 2 L and will transferred out of the intensive care unit to oncology unit for continue medical management. PNA- being followed by ID (Dr. Adams), recommends cefepime and zithromax. vacomycin d/c on 09/02. Influenza negative, legionella negative, resp panel negative. Worsening leukocytosis due to Neulasta, follow clinically. DO NOT DO ROUTINE BLOOD DRAWS. Blood culture negative x3 days. UTI- E.coli sen sensitive, abx per above. Anemialikely due to chemotherapy Chronic kidney disease stage IIImonitor, avoid nephrotoxins. Cr improving today. Hypokalemiasupplement, monitor and replace as need. Metastatic invasive bladder cancer with recent chemotherapy.Continue current management per oncology. Continue pain control. Neck pain /muscle spasm. Con't valium as patient says she had this pain before and only valium helps. DVT prophylaxis. Heparin SQ. Discharge Planning D/C when cleared by oncology, pending culture. Problem List: (1) Right lower lobe pneumonia Status: Acute (2) Urothelial carcinoma Status: Acute Kacey Elise MD R3 Sep 02, 2016 10:20
--- NOTE | 2016-09-02 10:56 | PD.ONC.PN ---
Subjective Subjective Remarks Eager to go home, understand need to wait for culture. BM good. Feeling better in general. Objective Data Date Time Temp Pulse Resp B/P Pulse Ox O2 Delivery O2 Flow Rate FiO2 09/02/16 08:00 97.2 85 16 158/74 95 09/02/16 04:00 98.2 88 18 169/79 94 09/02/16 00:00 97.8 87 17 142/64 93 09/01/16 20:00 95 Nasal Cannula 2.00 09/01/16 20:00 98.2 88 18 160/71 95 09/01/16 17:39 90 21 09/01/16 16:00 97.9 90 18 159/78 90 09/02/16 09/02/16 09/02/16 07:00 15:00 23:00 Intake Total 240 ml Output Total 900 ml 400 ml Balance -660 ml -400 ml Result Diagram: 09/01/16 1458 09/01/16 1458 Laboratory Results Laboratory Tests Test 09/01/16 14:58 White Blood Count 24.7 TH/MM3 Red Blood Count 3.31 MIL/MM3 Hemoglobin 10.4 GM/DL Hematocrit 29.2 % Mean Corpuscular Volume 88.2 FL Mean Corpuscular Hemoglobin 31.3 PG Mean Corpuscular Hemoglobin 35.5 % Concent Red Cell Distribution Width 14.3 % Platelet Count 165 TH/MM3 Mean Platelet Volume 9.7 FL Sodium Level 138 MEQ/L Potassium Level 3.1 MEQ/L Chloride Level 103 MEQ/L Carbon Dioxide Level 26.4 MEQ/L Anion Gap 9 MEQ/L Blood Urea Nitrogen 14 MG/DL Creatinine 1.10 MG/DL Estimat Glomerular Filtration 49 ML/MIN Rate Random Glucose 116 MG/DL Calcium Level 8.2 MG/DL Magnesium Level 1.6 MG/DL Culture Results Microbiology Date/Time Procedure Status Source Growth 08/31/16 13:30 Influenza Types A,B Antigen (LUCY) - Final Complete Nasal Washing NEGATIVE FOR FLU A AND B ANTIGEN.... 08/31/16 13:30 Legionella Antigen - Final Complete Urine Catheterized Urine PRESUMPTIVE NEGATIVE FOR LEGIONELLA P... Administered Medications Medications (Trade) Dose Ordered Sig/Nicko Route PRN Reason Start Time Stop Time Status Last Admin Dose Admin Oxycodone HCl (Roxicodone) 5 mg Q4H PRN PO pain 1-7 08/30/16 06:30 09/01/16 17:57 IV Flush (NS Flush) 2 ml BID IV FLUSH 08/30/16 09:00 09/02/16 08:50 Pantoprazole Sodium (Protonix Inj) 40 mg DAILY IV 08/30/16 09:00 09/02/16 08:49 Ondansetron HCl (Zofran Inj) 4 mg Q6H PRN IV NAUSEA OR VOMITING 08/30/16 06:30 08/31/16 17:17 Senna/Docusate Sodium (Kelli-Colace) 2 tab BID PO 08/30/16 09:00 09/02/16 08:50 Heparin Sodium (Porcine) 5000 units 5,000 units Q8H SQ 08/30/16 06:30 09/02/16 05:49 Vancomycin HCl 1600 mg/Sodium Chloride 516 ml @ 258 mls/hr Q24H IV 08/30/16 09:00 09/02/16 08:49 Azithromycin/ Sodium Chloride (Zithromax Inj/ NS 250 ml Inj) 250 ml @ 250 mls/hr Q24H IV 08/31/16 06:00 09/02/16 05:50 Nortriptyline HCl (Pamelor) 10 mg HS PO 08/30/16 21:00 09/01/16 19:58 Propranolol HCl 10 mg 10 mg Q12HR PO 08/30/16 21:00 09/02/16 08:50 Cefepime HCl/ Sodium Chloride (Maxipime Inj/NS Inj) 100 ml @ 200 mls/hr Q12H IV 08/31/16 13:00 09/02/16 00:57 Prochlorperazine Maleate (Compazine) 10 mg Q6H PRN PO NAUSEA OR VOMITING 08/31/16 20:45 09/01/16 16:02 Diazepam (Valium) 2 mg Q12HR PRN PO muscle relaxant /neck pain 09/01/16 10:15 09/01/16 19:58 Sumatriptan Succinate (Imitrex) 100 mg DAILY PRN PO MIGRAINE HEADACHE 09/01/16 10:15 09/02/16 10:06 Objective Remarks GENERAL: Middle aged female, in bed with lots of blanket, feels cold. SKIN: Warm and dry. HEAD: Alopecia. EYES: No injection or drainage. NECK: Supple, trachea midline. CARDIOVASCULAR: Regular rate and rhythm RESPIRATORY: Breath sounds equal bilaterally. No accessory muscle use. GASTROINTESTINAL: Abdomen soft, non-tender, nondistended. EXTREMITIES: No cyanosis NEUROLOGICAL: No obvious focal deficit. Awake, alert, and oriented x3. Assessment/Plan Problem List: (1) Right lower lobe pneumonia Status: Acute Plan: 09/02/16. Follow cultures, continue Abx, clinically improve, less SOB. No fevers. 09/01/16. Improving, less SOB. Follow by ID, no fevers, no neutropenia, Abx continue pending culture, Day 2 today. --on multiple abx. ID service following --CT angiogram was negative for pulmonary embolism. +bibasilar densities likely atelectasis. -- (2) Urothelial carcinoma Status: Acute Plan: 09/02/16. s/p chemo. K low due to cisplatin, replace orally and IV. Nausea improved. Headache persist a week, typical for her migraine, PRN medications in place. Stop CBC check, pt hgb stable, increased WBC due to Neulasta- long acting GCSF 09/01/16. Chemo related toxicity start to improve. Nausea improve, no vomiting, less tired. 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 --developed recurrent disease intraperitoneally and subsequently developed invasive cancer. --is receiving palliative chemotherapy with MVA coordinated with [facility] in [place]. --s/p cycle 2 of MVAC chemotherapy. --is pending a followup appointment at [facility] for participation in a clinical trial. (3) Antineoplastic chemotherapy induced anemia Status: Acute Plan: 09/02/16. No transfusion needed. Hgb stable. 09/01/16. No specific therapy for anemia and CRI, appear baseline. Replace K or mag if low. No transfusion needed for now. --no specific therapy required --monitor for bleeding Assessment 66y/o female with metastatic/locally advanced urothelial cancer. History: Two days after chemotherapy, she had a significant amount of nausea, vomiting and became short of breath. In the emergency room, she was found to have early infiltrate and B-natriuretic peptide was 713. h/o Iron deficiency anemia. Chronic renal insufficiency. Nephrolithiasis. Migraine headache. Superficial bladder cancer. Metastatic invasive bladder cancer. Plan 1. Replace K 2. antibiotics per ID- culture still pending 3. DC daily CBC 4. Stool softner Nelda Brunson MD Sep 02, 2016 10:56
[2016-09-02 11:08] LABS: HEMATOCRIT 26.4 % (35.0-46.0); MEAN CELL VOLUME 89.2 FL (80.0-100.0); MEAN CORPUSCULAR HEMOGLOBIN 31.4 PG (27.0-34.0); MEAN CORPUSCULAR HGB CONC 35.2 % (32.0-36.0); PLATELET COUNT 142 TH/MM3 (150-450); RED BLOOD COUNT 2.96 MIL/MM3 (4.00-5.30); REVIEW FLAG FINAL; WHITE BLOOD COUNT 16.5 TH/MM3 (4.0-11.0)
[2016-09-02 11:21] LABS: BICARBONATE 29.1 MEQ/L (21.0-32.0); POTASSIUM 3.3 MEQ/L (3.5-5.1)
[2016-09-02] MEDS ORDERED: ALTEPLASE RECOMBINANT 2 MG VIAL IVF ONE (11:45)
--- NOTE | 2016-09-02 13:34 | HHI.IDPN ---
Note Infectious Disease Note ID-coverage. Notes reviewed. Patient without complaints. Has occasional cough. No sputum production. Afebrile. WBC elevated. Patient is a 66-year-old female, with history of bladder cancer, developed invasive cancer with metastatic disease, has been receiving chemotherapy, Presented to the hospital with nausea and vomiting, cough and shortness of breath. Her last chemotherapy was 3 days prior to admission, and after that treatment she's had some nausea. She started having vomiting the night prior to admission, and also started having some dry cough with some shortness of breath. Past Family Social History Allergies: Coded Allergies: Clindamycin (Unverified Allergy, Severe, unknown reaction, 09/02/15) Keflex (Unverified Allergy, Severe, extreme headache, 09/02/15) Penicillin (Verified Allergy, Severe, MAKES ME SLEEPY, 09/02/15) Prednisone (Unverified Allergy, Severe, extreme agitation, 09/02/15) Morphine (Unverified Adverse Reaction, Mild, i.v. n/v, 09/02/15) Past Medical History Iron deficiency anemia. Chronic renal insufficiency. Nephrolithiasis. Migraine headache. Superficial bladder cancer. Metastatic invasive bladder cancer. Anxiety Mitral Valve prolapse Lumbar back pain Past Surgical History Robotic assisted laparoscopic nephroureterectomy Previous cysto and TURBT Laparoscopy with TAYLOR and peritoneal nodule excision. Multiple Cystoscopy. CT-guided bone biopsy. Port placement Kidney stent Current Medications Medications (Trade) Dose Ordered Sig/Nicko Route PRN Reason Start Time Stop Time Status Last Admin Dose Admin Hydromorphone HCl (Dilaudid Pf Inj) 0.5 mg Q4H PRN IV PUSH pain 8-10 or not taking po 08/30/16 06:30 Oxycodone HCl (Roxicodone) 5 mg Q4H PRN PO pain 1-7 08/30/16 06:30 09/01/16 17:57 IV Flush (NS Flush) 2 ml UNSCH PRN IV FLUSH FLUSH AFTER USING IV ACCESS 08/30/16 06:30 IV Flush (NS Flush) 2 ml BID IV FLUSH 08/30/16 09:00 09/02/16 08:50 Acetaminophen (Tylenol) 650 mg Q6H PRN PO FEVER >101F 08/30/16 06:30 Pantoprazole Sodium (Protonix Inj) 40 mg DAILY IV 08/30/16 09:00 09/02/16 08:49 Ondansetron HCl (Zofran Inj) 4 mg Q6H PRN IV NAUSEA OR VOMITING 08/30/16 06:30 08/31/16 17:17 Senna/Docusate Sodium (Kelli-Colace) 2 tab BID PO 08/30/16 09:00 09/02/16 08:50 Heparin Sodium (Porcine) (Heparin Inj) 5,000 units Q8H SQ 08/30/16 06:30 09/02/16 05:49 Miscellaneous Information 1 Q361D XX 08/30/16 06:30 Chlorhexidine Gluconate (Chlorhexidine 2% Cloth) 3 pack Taper DAILY@04 TOP 08/31/16 04:00 08/27/17 03:59 Chlorhexidine Gluconate 3 pack 3 pack UNSCH PRN TOP HYGIENIC CARE 08/30/16 06:30 Pharmacy Profile Note 0 ml @ 0 mls/hr UNSCH OTHER 08/30/16 06:30 Azithromycin/ Sodium Chloride (Zithromax Inj/ NS 250 ml Inj) 250 ml @ 250 mls/hr Q24H IV 08/31/16 06:00 09/02/16 05:50 Nortriptyline HCl (Pamelor) 10 mg HS PO 08/30/16 21:00 09/01/16 19:58 Propranolol HCl 10 mg 10 mg Q12HR PO 08/30/16 21:00 09/02/16 08:50 Cefepime HCl/ Sodium Chloride (Maxipime Inj/NS Inj) 100 ml @ 200 mls/hr Q12H IV 08/31/16 13:00 09/02/16 00:57 Prochlorperazine Maleate (Compazine) 10 mg Q6H PRN PO NAUSEA OR VOMITING 08/31/16 20:45 09/01/16 16:02 Diazepam (Valium) 2 mg Q12HR PRN PO muscle relaxant /neck pain 09/01/16 10:15 09/01/16 19:58 Sumatriptan Succinate (Imitrex) 100 mg DAILY PRN PO MIGRAINE HEADACHE 09/01/16 10:15 09/02/16 10:06 Potassium Chloride 10 meq 10 meq BID PO 09/02/16 21:00 Vancomycin HCl/ Sodium Chloride (Vancomycin Inj/ NS 500 ml Inj) 515 ml @ 257.5 mls/ hr Q18H IV 09/03/16 06:00 Miscellaneous Information SPECIFIC LAB TO BE DRAWN:VANCOMYCIN TROUGH DATE TO... ONCE ONCE XX 09/05/16 11:45 09/05/16 11:46 Social History Occasional wine drinker Ex smoker, used to smoke 1ppd No drug use OBJECTIVE: Vital Signs Date Time Temp Pulse Resp B/P Pulse Ox O2 Delivery O2 Flow Rate FiO2 09/02/16 08:50 Nasal Cannula 2.00 21 09/02/16 08:00 97.2 85 16 158/74 95 09/02/16 04:00 98.2 88 18 169/79 94 09/02/16 00:00 97.8 87 17 142/64 93 09/01/16 20:00 95 Nasal Cannula 2.00 09/01/16 20:00 98.2 88 18 160/71 95 09/01/16 17:39 90 21 09/01/16 16:00 97.9 90 18 159/78 90 Laboratory Tests Test 09/01/16 09/02/16 14:58 05:30 White Blood Count 24.7 TH/MM3 16.5 TH/MM3 Red Blood Count 3.31 MIL/MM3 2.96 MIL/MM3 Hemoglobin 10.4 GM/DL 9.3 GM/DL Hematocrit 29.2 % 26.4 % Mean Corpuscular Volume 88.2 FL 89.2 FL Mean Corpuscular Hemoglobin 31.3 PG 31.4 PG Mean Corpuscular Hemoglobin 35.5 % 35.2 % Concent Red Cell Distribution Width 14.3 % 14.0 % Platelet Count 165 TH/MM3 142 TH/MM3 Mean Platelet Volume 9.7 FL 10.7 FL Laboratory Tests Test 09/01/16 09/02/16 14:58 10:15 Sodium Level 138 MEQ/L 138 MEQ/L Potassium Level 3.1 MEQ/L 3.3 MEQ/L Chloride Level 103 MEQ/L 102 MEQ/L Carbon Dioxide Level 26.4 MEQ/L 29.1 MEQ/L Anion Gap 9 MEQ/L 7 MEQ/L Blood Urea Nitrogen 14 MG/DL 13 MG/DL Creatinine 1.10 MG/DL 1.04 MG/DL Estimat Glomerular Filtration 49 ML/MIN 53 ML/MIN Rate Random Glucose 116 MG/DL 121 MG/DL Calcium Level 8.2 MG/DL 8.4 MG/DL Magnesium Level 1.6 MG/DL Microbiology Date/Time Procedure Status Source Growth 08/31/16 13:30 Influenza Types A,B Antigen (LUCY) - Final Complete Nasal Washing NEGATIVE FOR FLU A AND B ANTIGEN.... 08/31/16 13:30 Legionella Antigen - Final Complete Urine Catheterized Urine PRESUMPTIVE NEGATIVE FOR LEGIONELLA P... Physical Exam Physical Exam GENERAL: Awake and alert, looks chronically ill appearing, no respiratory distress. SKIN: Warm and dry. No generalized rash. No ecchymosis. HEAD: Atraumatic. Normocephalic. Has alopecia. EYES: [place] conjunctiva, no petechia or hemorrhage. Pupils equal round and reactive. Extraocular motions intact. No scleral icterus. No injection or drainage. ENT: Nose without bleeding, or purulent drainage. Moist oral mucosa. NECK: Trachea midline. No JVD or lymphadenopathy. Supple, nontender, no meningeal signs. CARDIOVASCULAR: Regular rate and rhythm without murmurs, gallops, or rubs. RESPIRATORY: Breath sounds equal bilaterally. No wheezes, or rhonchi. Decreased BS at bases. Port appears intact. GASTROINTESTINAL: Abdomen soft, non-tender, nondistended. Bowel sounds are present and normoactive. MUSCULOSKELETAL: Extremities without clubbing, cyanosis, or edema. No joint effusion, or edema noted. NEUROLOGICAL: Non focal. PSYCH: Calm and cooperative LINE: Port with no evidence of infection Imaging RADIOLOGY STUDIES/FILMS REVIEWED Chest X-Ray 08/30/16 0417 Signed Impressions: Service Date/Time: August 05:06 - CONCLUSION: Right lower lobe infiltrate. Ronald Robbins Jr., MD CT Angiography 08/30/16 0000 Signed Impressions: Service Date/Time: August 09:21 - CONCLUSION: 1. No evidence for pulmonary embolism. 2. Scattered groundglass densities possibly interstitial edema. 3. Bibasilar densities likely atelectasis. 4. Small pleural effusions, greater on the right. 5. Severe emphysema. Yevgeniy Marsh MD Abdomen/Pelvis CT 08/30/16 0000 Signed Impressions: Service Date/Time: August 09:21 - CONCLUSION: 1. Soft tissue and bony destructive mass in the left hemipelvis measuring over 5 cm in diameter characteristic of metastatic renal cell carcinoma. Postoperative left nephrectomy. 2. Small bilateral pleural effusions with basilar lung atelectasis. 3. No gastric distention. No bowel obstruction, free fluid or free air. Willie Landa MD Assessment and Plan IMPRESSION Febrile illness, with respiratory symptoms and abnormal CXR and CT chest - CAP, patient immunocompromised from underlying malignancy and chemo, not neutropenic - also with some pyuria, no symptoms Bladder CA with metastatic disease Renal insufficiency Multiple Abx adverse reactions E. coli UTI. Stable. RECOMMENDATION Cefepime Zithromax Stop Vancomycin Follow C/S Monitor progress D/W RN. Dr. Adams back tomorrow and will make disposition on abx for D/C. Jonathan Garza MD Sep 02, 2016 13:34
[2016-09-02] MEDS: NORTRIPTYLINE HCL 10 MG CAP PO SCH (19:58)
[2016-09-02] MEDS: POTASSIUM CHLORIDE 10 MEQ CAP PO SCH (19:59)
[2016-09-02] MEDS: DIAZEPAM 2 MG TAB PO PRN (22:26)
[2016-09-02] MEDS: SUMAtriptan SUCCINATE 25 MG TAB PO PRN (22:58)
[2016-09-03] VITALS: BP 177/77; PULSE 89; RESP 17; TEMP 98.8; O2SAT 96
[2016-09-03] MEDS: CEFEPIME INJ 2,000 MG in SODIUM CHLORIDE 0.9% INJ 100 ML IV SCH (00:38)
[2016-09-03] MEDS ORDERED: cloNIDine HCL 0.1 MG TAB PO ONE (01:45)
[2016-09-03] MEDS: CHLORHEXIDINE GLUCONATE 2 % 1 PACK (2 CLOTHS) TOP SCH (04:00)
[2016-09-03 04:34] VITALS: BP 181/71
[2016-09-03] MEDS: AZITHROMYCIN INJ 250 MG in SODIUM CHLOR 0.9% 250 ML INJ 250 ML IV SCH (05:33)
[2016-09-03] MEDS: HEPARIN SODIUM - SQ 10,000 UNITS/ML VIAL SQ SCH ×2 (05:34→14:30)
[2016-09-03 05:49] VITALS: BP 163/82; PULSE 78
[2016-09-03] MEDS ORDERED: VANCOMYCIN INJ 1,500 MG in SODIUM CHLORID 0.9% 500 ML INJ 500 ML IV SCH (06:00)
[2016-09-03 07:34] LABS: BICARBONATE 28.4 MEQ/L (21.0-32.0); POTASSIUM 3.5 MEQ/L (3.5-5.1)
[2016-09-03] MEDS ORDERED: cloNIDine HCL 0.1 MG TAB PO PRN (07:45)
--- NOTE | 2016-09-03 07:54 | HHI.PR ---
Subjective Remarks Feels good. No cp, sob. No cough. Denies any fevers. Cleared by ID specialist. Objective Vitals Vital Signs Date Time Temp Pulse Resp B/P Pulse Ox O2 Delivery O2 Flow Rate FiO2 09/03/16 05:49 78 163/82 09/03/16 04:34 181/71 09/03/16 00:00 98.8 89 17 177/77 96 09/02/16 22:00 192/88 09/02/16 20:00 97.7 80 17 162/72 96 09/02/16 15:45 97.1 81 20 183/93 93 09/02/16 12:00 98.6 83 20 182/77 96 09/02/16 08:50 Nasal Cannula 2.00 21 09/02/16 08:00 97.2 85 16 158/74 95 I/O 09/02/16 09/02/16 09/02/16 09/03/16 09/03/16 09/03/16 07:00 15:00 23:00 07:00 15:00 23:00 Intake Total 240 ml 360 ml 240 ml 240 ml Output Total 900 ml 1200 ml 900 ml Balance -660 ml -840 ml -660 ml 240 ml Intake Oral 240 ml 360 ml 240 ml 240 ml Output Urine Total 900 ml 1200 ml 900 ml # Voids 1 # Bowel Movements 1 2 0 0 Result Diagram: 09/02/16 0530 09/03/16 0545 Imaging Last Impressions Chest X-Ray 08/30/16 0417 Signed Impressions: Service Date/Time: August 05:06 - CONCLUSION: Right lower lobe infiltrate. Ronald Robbins Jr., MD CT Angiography 08/30/16 0000 Signed Impressions: Service Date/Time: August 09:21 - CONCLUSION: 1. No evidence for pulmonary embolism. 2. Scattered groundglass densities possibly interstitial edema. 3. Bibasilar densities likely atelectasis. 4. Small pleural effusions, greater on the right. 5. Severe emphysema. Yevgeniy Marsh MD Abdomen/Pelvis CT 08/30/16 0000 Signed Impressions: Service Date/Time: August 09:21 - CONCLUSION: 1. Soft tissue and bony destructive mass in the left hemipelvis measuring over 5 cm in diameter characteristic of metastatic renal cell carcinoma. Postoperative left nephrectomy. 2. Small bilateral pleural effusions with basilar lung atelectasis. 3. No gastric distention. No bowel obstruction, free fluid or free air. Willie Landa MD Objective Remarks GENERAL: This is a well-nourished, well-developed patient, in no apparent distress. CARDIOVASCULAR: Regular rate and rhythm RESPIRATORY: Diminished on bases with few crackles bilaterally GASTROINTESTINAL: Abdomen soft, non-tender, nondistended. Normal active bowel sounds MUSCULOSKELETAL: Extremities without clubbing, cyanosis, with trace edema NEURO: Alert & Oriented x4 to person, place, time, situation. Moves all ext x4 A/P Assessment and Plan 66y/o female with metastatic/locally advanced urothelial cancer. Admitted after two days of palliative chemotherapy developed acutely short of breath along with significant amount of nausea or vomiting. It was found the patient early infiltrate and with early pneumonia and which infectious disease recommends continuing antibiotics due to recent chemotherapy. Continue Zithromax, vancomycin, cefepime IV, oxygen support. ID Dr Jacobs following. CT pulmonary angiogram obtained shows no PE. Currently on 2 L and will transferred out of the intensive care unit to oncology unit for continue medical management. PNA. ID following. Continue zithromax, cefepime IV. DC vancomycin.Cleared by Dr Jacobs for DC to have levaquin Anemialikely due to chemotherapy Chronic kidney disease stage IIImonitor, avoid nephrotoxins Hypokalemiasupplement, monitor and replace as need. Metastatic invasive bladder cancer with recent chemotherapy.Continue current management per oncology. Continue pain control. Neck pain /muscle spasm. Add valium as patient says she had this pain before and only valium helps. DVT prophylaxis. Heparin SQ. Discharge Planning Home today Discussed with the patient, nurse, Dr jacobs, hem/onc Cleared for Dc by consultants, to follow up as OP with PCP and consultants. Soraya Knight MD Sep 03, 2016 07:54
[2016-09-03 08:00] VITALS: BP 178/79; PULSE 77; RESP 18; TEMP 97.6; O2SAT 94
--- NOTE | 2016-09-03 08:59 | HHI.IDPN ---
Note Infectious Disease Note Notes reviewed. Afebrile Overall better O2 at 2L Not coughing Voiding well BC negative UC with E coli Anxious to go home Patient is a 66-year-old female, with history of bladder cancer, developed invasive cancer with metastatic disease, has been receiving chemotherapy, Presented to the hospital with nausea and vomiting, cough and shortness of breath. Her last chemotherapy was 3 days prior to admission, and after that treatment she's had some nausea. She started having vomiting the night prior to admission, and also started having some dry cough with some shortness of breath. Past History Iron deficiency anemia. Chronic renal insufficiency. Nephrolithiasis. Migraine headache. Superficial bladder cancer. Metastatic invasive bladder cancer. Anxiety Mitral Valve prolapse Lumbar back pain Robotic assisted laparoscopic nephroureterectomy Previous cysto and TURBT Laparoscopy with TAYLOR and peritoneal nodule excision. Multiple Cystoscopy. CT-guided bone biopsy. Port placement Kidney stent ANTIBIOTICS Cefepime Azithromycin OBJECTIVE: Vital Signs Date Time Temp Pulse Resp B/P Pulse Ox O2 Delivery O2 Flow Rate FiO2 09/03/16 08:00 97.6 77 18 178/79 94 09/03/16 05:49 78 163/82 09/03/16 04:34 181/71 09/03/16 00:00 98.8 89 17 177/77 96 09/02/16 22:00 192/88 09/02/16 20:00 97.7 80 17 162/72 96 09/02/16 15:45 97.1 81 20 183/93 93 09/02/16 12:00 98.6 83 20 182/77 96 Vital Signs Date Time Temp Pulse Resp B/P Pulse Ox O2 Delivery O2 Flow Rate FiO2 09/02/16 08:50 Nasal Cannula 2.00 21 09/02/16 08:00 97.2 85 16 158/74 95 09/02/16 04:00 98.2 88 18 169/79 94 09/02/16 00:00 97.8 87 17 142/64 93 09/01/16 20:00 95 Nasal Cannula 2.00 09/01/16 20:00 98.2 88 18 160/71 95 09/01/16 17:39 90 21 09/01/16 16:00 97.9 90 18 159/78 90 Laboratory Tests Test 09/01/16 09/02/16 14:58 05:30 White Blood Count 24.7 TH/MM3 16.5 TH/MM3 Red Blood Count 3.31 MIL/MM3 2.96 MIL/MM3 Hemoglobin 10.4 GM/DL 9.3 GM/DL Hematocrit 29.2 % 26.4 % Mean Corpuscular Volume 88.2 FL 89.2 FL Mean Corpuscular Hemoglobin 31.3 PG 31.4 PG Mean Corpuscular Hemoglobin 35.5 % 35.2 % Concent Red Cell Distribution Width 14.3 % 14.0 % Platelet Count 165 TH/MM3 142 TH/MM3 Mean Platelet Volume 9.7 FL 10.7 FL Laboratory Tests Test 09/01/16 09/02/16 09/03/16 14:58 10:15 05:45 Sodium Level 138 MEQ/L 138 MEQ/L 138 MEQ/L Potassium Level 3.1 MEQ/L 3.3 MEQ/L 3.5 MEQ/L Chloride Level 103 MEQ/L 102 MEQ/L 102 MEQ/L Carbon Dioxide Level 26.4 MEQ/L 29.1 MEQ/L 28.4 MEQ/L Anion Gap 9 MEQ/L 7 MEQ/L 8 MEQ/L Blood Urea Nitrogen 14 MG/DL 13 MG/DL 12 MG/DL Creatinine 1.10 MG/DL 1.04 MG/DL 0.81 MG/DL Estimat Glomerular Filtration 49 ML/MIN 53 ML/MIN 70 ML/MIN Rate Random Glucose 116 MG/DL 121 MG/DL 96 MG/DL Calcium Level 8.2 MG/DL 8.4 MG/DL 8.3 MG/DL Magnesium Level 1.6 MG/DL Microbiology Date/Time Procedure Status Source Growth 08/31/16 13:30 Influenza Types A,B Antigen (LUCY) - Final Complete Nasal Washing NEGATIVE FOR FLU A AND B ANTIGEN.... 08/31/16 13:30 Legionella Antigen - Final Complete Urine Catheterized Urine PRESUMPTIVE NEGATIVE FOR LEGIONELLA P... Physical Exam Physical Exam GENERAL: Awake and alert, NAD SKIN: Warm and dry. No generalized rash. HEENT: [place] conjunctiva, no petechia or hemorrhage. No scleral icterus. Moist oral mucosa. NECK: Trachea midline. No JVD or lymphadenopathy. Supple, nontender, no meningeal signs. CARDIOVASCULAR: Regular rate and rhythm without murmurs, gallops, or rubs. RESPIRATORY: Breath sounds equal bilaterally. No wheezes, or rhonchi. Decreased BS at bases. Port appears intact. GASTROINTESTINAL: Abdomen soft, non-tender, nondistended. Bowel sounds are present and normoactive. MUSCULOSKELETAL: Extremities without clubbing, cyanosis, or edema. No joint effusion, or edema noted. NEUROLOGICAL: Non focal. PSYCH: Calm and cooperative LINE: Port with no evidence of infection RADIOLOGY STUDIES/FILMS REVIEWED Chest X-Ray 08/30/16 0417 Signed Impressions: Service Date/Time: August 05:06 - CONCLUSION: Right lower lobe infiltrate. Ronald Robbins Jr., MD CT Angiography 08/30/16 0000 Signed Impressions: Service Date/Time: August 09:21 - CONCLUSION: 1. No evidence for pulmonary embolism. 2. Scattered groundglass densities possibly interstitial edema. 3. Bibasilar densities likely atelectasis. 4. Small pleural effusions, greater on the right. 5. Severe emphysema. Yevgeniy Marsh MD Abdomen/Pelvis CT 08/30/16 0000 Signed Impressions: Service Date/Time: August 09:21 - CONCLUSION: 1. Soft tissue and bony destructive mass in the left hemipelvis measuring over 5 cm in diameter characteristic of metastatic renal cell carcinoma. Postoperative left nephrectomy. 2. Small bilateral pleural effusions with basilar lung atelectasis. 3. No gastric distention. No bowel obstruction, free fluid or free air. Willie Landa MD IMPRESSION Febrile illness, with respiratory symptoms and abnormal CXR and CT chest - CAP, patient immunocompromised from underlying malignancy and chemo, not neutropenic - also with some pyuria, no symptoms Bladder CA with metastatic disease Renal insufficiency Multiple Abx adverse reactions E. coli UTI. RECOMMENDATION Change to po Levaquin If no GI problems with first dose of Levauin, ok to D/C home Give 10 days Levaquin Clincially doing well from ID standpoint Explained plan to patient D/W Dr Antonia Adams,Monie Sauceda MD Sep 03, 2016 08:59
[2016-09-03] MEDS ORDERED: LEVA750T PO ×2 (09:13→16:04)
--- NOTE | 2016-09-03 09:13 | HHI.DCPOC ---
Discharge Care Plan Goals to Promote Your Health * To prevent worsening of your condition and complications * To maintain your health at the optimal level Directions to Meet Your Goals Take your medications as prescribed Follow your dietary instruction Follow activity as directed Keep your appointments as scheduled Take your immunizations and boosters as scheduled If your symptoms worsen call your PCP, if no PCP go to Urgent Care Center or Emergency Room Smoking is Dangerous to Your Health. Avoid second hand smoke Call the 24-hour hour crisis hotline for domestic abuse at Soraya Knight MD Sep 03, 2016 09:13
--- NOTE | 2016-09-03 09:14 | HHI.FF ---
Face to Face Verification Diagnosis: (1) General weakness (2) Atypical chest pain (3) Congestive heart failure (4) Hypoxemia (5) Right lower lobe pneumonia (6) Antineoplastic chemotherapy induced anemia (7) Urothelial carcinoma Physical Therapy Order: Evaluate and Treat Home Health Nursing Order: Medical education Signs/symptoms of disease process Oxygen administration education Medication education-adverse effect Nursing assessment with vital signs I have seen patient Shwetha Plata on 09/03/16. My clinical findings support the need for the requested home health care services because: Ltd mobility - disease progression Patient has SOB I certify that my clinical findings support that this patient is homebound because: Post-op weakness Soraya Knight MD Sep 03, 2016 09:14 Soraya Knight MD Sep 03, 2016 09:14
[2016-09-03] MEDS: POTASSIUM CHLORIDE 10 MEQ CAP PO SCH (09:55)
[2016-09-03] MEDS: DIAZEPAM 2 MG TAB PO PRN (09:55)
[2016-09-03] MEDS: DOCUSATE SODIUM 50 MG/SENNA 8.6 MG TAB PO SCH (09:55)
[2016-09-03] MEDS: PROPRANOLOL HCL 10 MG TAB PO SCH (09:55)
[2016-09-03] MEDS: SODIUM CHLORIDE 0.9% FLUSH 5 ML FLUSH IV FLUSH SCH (09:56)
[2016-09-03] MEDS: PANTOPRAZOLE SODIUM 40 MG VIAL IV SCH (09:56)
[2016-09-03] MEDS ORDERED: LEVOFLOXACIN 750 MG TAB PO SCH (10:00)
[2016-09-03] MEDS ORDERED: OXYGENTANK NAS.CANULA (10:06)
[2016-09-03 11:42] LABS: AUTOMATED NEUTROPHIL # 2.2 TH/MM3 (1.8-7.7); BASOPHIL % 1.3 % (0.0-2.0); EOSINOPHIL # 0.1 TH/MM3 (0-0.4); EOSINOPHIL % 4.4 % (0.0-4.0); LYMPH % 23.5 % (9.0-44.0); LYMPHOCYTE # 0.7 TH/MM3 (1.0-4.8); MEAN CELL VOLUME 88.8 FL (80.0-100.0); MEAN CORPUSCULAR HEMOGLOBIN 30.6 PG (27.0-34.0); MEAN CORPUSCULAR HGB CONC 34.5 % (32.0-36.0); MONO % 2.4 % (0.0-8.0); NEUT % 68.4 % (16.0-70.0); PLATELET COUNT 120 TH/MM3 (150-450); RED BLOOD COUNT 3.04 MIL/MM3 (4.00-5.30); RED CELL DISTRIBUTION WIDTH 13.9 % (11.6-17.2); WHITE BLOOD COUNT 3.2 TH/MM3 (4.0-11.0)
[2016-09-03 11:47] LABS: HEMO FLAGS AUTO DIFF
[2016-09-03 12:00] VITALS: BP 168/87; PULSE 74; RESP 16; TEMP 97.4; O2SAT 96
--- NOTE | 2016-09-03 12:07 | PD.ONC.PN ---
Subjective Subjective Remarks Afebrile overnight. Patient feeling well today without complaint. Denies cough. Denies pain. Objective Data Date Time Temp Pulse Resp B/P Pulse Ox O2 Delivery O2 Flow Rate FiO2 09/03/16 09:55 94 Nasal Cannula 2.00 21 09/03/16 09:48 2.00 09/03/16 08:00 97.6 77 18 178/79 94 09/03/16 05:49 78 163/82 09/03/16 04:34 181/71 09/03/16 00:00 98.8 89 17 177/77 96 09/02/16 22:00 192/88 09/02/16 20:00 97.7 80 17 162/72 96 09/02/16 15:45 97.1 81 20 183/93 93 Result Diagram: 09/03/16 1039 09/03/16 0545 Laboratory Results Laboratory Tests Test 09/03/16 09/03/16 05:45 10:39 Sodium Level 138 MEQ/L Potassium Level 3.5 MEQ/L Chloride Level 102 MEQ/L Carbon Dioxide Level 28.4 MEQ/L Anion Gap 8 MEQ/L Blood Urea Nitrogen 12 MG/DL Creatinine 0.81 MG/DL Estimat Glomerular Filtration 70 ML/MIN Rate Random Glucose 96 MG/DL Calcium Level 8.3 MG/DL White Blood Count 3.2 TH/MM3 Red Blood Count 3.04 MIL/MM3 Hemoglobin 9.3 GM/DL Hematocrit 27.0 % Mean Corpuscular Volume 88.8 FL Mean Corpuscular Hemoglobin 30.6 PG Mean Corpuscular Hemoglobin 34.5 % Concent Red Cell Distribution Width 13.9 % Platelet Count 120 TH/MM3 Mean Platelet Volume 9.9 FL Neutrophils (%) (Auto) 68.4 % Lymphocytes (%) (Auto) 23.5 % Monocytes (%) (Auto) 2.4 % Eosinophils (%) (Auto) 4.4 % Basophils (%) (Auto) 1.3 % Neutrophils # (Auto) 2.2 TH/MM3 Lymphocytes # (Auto) 0.7 TH/MM3 Monocytes # (Auto) 0.1 TH/MM3 Eosinophils # (Auto) 0.1 TH/MM3 Basophils # (Auto) 0.0 TH/MM3 CBC Comment AUTO DIFF Culture Results Microbiology Date/Time Procedure Status Source Growth 08/31/16 13:30 Influenza Types A,B Antigen (LUCY) - Final Complete Nasal Washing NEGATIVE FOR FLU A AND B ANTIGEN.... 08/31/16 13:30 Legionella Antigen - Final Complete Urine Catheterized Urine PRESUMPTIVE NEGATIVE FOR LEGIONELLA P... Administered Medications Medications (Trade) Dose Ordered Sig/Nicko Route PRN Reason Start Time Stop Time Status Last Admin Dose Admin Oxycodone HCl (Roxicodone) 5 mg Q4H PRN PO pain 1-7 08/30/16 06:30 09/03/16 09:56 IV Flush (NS Flush) 2 ml BID IV FLUSH 08/30/16 09:00 09/03/16 09:56 Pantoprazole Sodium (Protonix Inj) 40 mg DAILY IV 08/30/16 09:00 09/03/16 09:56 Ondansetron HCl (Zofran Inj) 4 mg Q6H PRN IV NAUSEA OR VOMITING 08/30/16 06:30 08/31/16 17:17 Senna/Docusate Sodium (Kelli-Colace) 2 tab BID PO 08/30/16 09:00 09/03/16 09:55 Heparin Sodium (Porcine) (Heparin Inj) 5,000 units Q8H SQ 08/30/16 06:30 09/03/16 05:34 Nortriptyline HCl (Pamelor) 10 mg HS PO 08/30/16 21:00 09/02/16 19:58 Propranolol HCl (Inderal) 10 mg Q12HR PO 08/30/16 21:00 09/03/16 09:55 Prochlorperazine Maleate (Compazine) 10 mg Q6H PRN PO NAUSEA OR VOMITING 08/31/16 20:45 09/01/16 16:02 Diazepam (Valium) 2 mg Q12HR PRN PO muscle relaxant /neck pain 09/01/16 10:15 09/03/16 09:55 Potassium Chloride (KCl) 10 meq BID PO 09/02/16 21:00 09/03/16 09:55 Sumatriptan Succinate (Imitrex) 100 mg DAILY PRN PO MIGRAINE HEADACHE 09/02/16 22:45 09/02/16 22:58 Levofloxacin (Levaquin) 750 mg DAILY PO 09/03/16 10:00 09/13/16 09:59 09/03/16 09:59 Objective Remarks GENERAL: Middle aged female, lying in bed in nad. she is sleeping on approach, but awakens when I enter. SKIN: Warm and dry. HEAD: atraumatic, normocephalic. + alopecia. EYES: No injection or drainage. NECK: Supple, trachea midline. CARDIOVASCULAR: Regular rate and rhythm RESPIRATORY: Breath sounds equal bilaterally. No accessory muscle use. GASTROINTESTINAL: Abdomen soft, non-tender, nondistended. EXTREMITIES: No cyanosis NEUROLOGICAL: awake and alert, normal speech. Assessment/Plan Problem List: (1) Right lower lobe pneumonia Status: Acute Plan: 09/03/16: switched to Levaquin per ID. clear for d/c 09/02/16. Follow cultures, continue Abx, clinically improve, less SOB. No fevers. 09/01/16. Improving, less SOB. Follow by ID, no fevers, no neutropenia, Abx continue pending culture, Day 2 today. --on multiple abx. ID service following --CT angiogram was negative for pulmonary embolism. +bibasilar densities likely atelectasis. -- (2) Urothelial carcinoma Status: Acute Plan: 09/03/16: monitor counts. clear for d/c 09/02/16. s/p chemo. K low due to cisplatin, replace orally and IV. Nausea improved. Headache persist a week, typical for her migraine, PRN medications in place. Stop CBC check, pt hgb stable, increased WBC due to Neulasta- long acting GCSF 09/01/16. Chemo related toxicity start to improve. Nausea improve, no vomiting, less tired. 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 --developed recurrent disease intraperitoneally and subsequently developed invasive cancer. --is receiving palliative chemotherapy with MVAC coordinated with MD Sprague in [place]. --s/p cycle 2 of MVAC chemotherapy. --is pending a followup appointment at [facility] for participation in a clinical trial. (3) Antineoplastic chemotherapy induced anemia Status: Acute Plan: 09/03/16: monitor for bleeding. no transfusion 09/02/16. No transfusion needed. Hgb stable. 09/01/16. No specific therapy for anemia and CRI, appear baseline. Replace K or mag if low. No transfusion needed for now. Assessment 66y/o female with metastatic/locally advanced urothelial cancer. History: Two days after chemotherapy, she had a significant amount of nausea, vomiting and became short of breath. In the emergency room, she was found to have early infiltrate and B-natriuretic peptide was 713. h/o Iron deficiency anemia. Chronic renal insufficiency. Nephrolithiasis. Migraine headache. Superficial bladder cancer. Metastatic invasive bladder cancer. Plan 1. clear for dc 2. follow up in clinic. RX for Valium placed in chart. Attending Statement The exam, history, and the medical decision-making described in the above note were completed with the assistance of the mid-level provider. I reviewed and agree with the findings presented. I attest that I had a chom-eu-apdt encounter with the patient on the same day, and personally performed and documented my assessment and findings in the medical record. Pt seen and examined. c/o migraine, requested Valium for migraine Rx written. Eager to go home. Ok to DC from heme onc standpoint. Anticipate cytopenia. Abx per ID. Follow up as scheduled. Advised to monitor and call for fever. Desi Al Sep 03, 2016 12:07 Nelda Spaulding MD Sep 03, 2016 12:44
[2016-09-03 12:56] LABS: BANDS 1 % (0-6); BASOPHILS 3 % (0-2); EOSINOPHILS 7 % (0-4); NEUTROPHIL # MANUAL DIFF 2.1 TH/MM3 (1.8-7.7); POLYS (SEG NEUTROPHILS) 64 % (16-70); WBC DIFF SAMPLE 100
[2016-09-03 12:57] LABS: KERATOCYTES OCC (NORMAL); PLATELET ESTIMATE SMEAR LOW (NORMAL); PLATELET MORPHOLOGY NORMAL (NORMAL); SCAN/DIFF FINAL DIFF MANUAL
[2016-09-03] MEDS: SUMAtriptan SUCCINATE 25 MG TAB PO PRN (14:40)
[2016-09-03] MEDS ORDERED: ENALAPRILAT 2.5 MG/2 ML VIAL IV PUSH PRN (16:00)
--- NOTE | 2016-09-03 16:11 | HHI.DS ---
Discharge Summary Admission Date Aug 30, 2016 at 06:02 Discharge Date: Sep 03, 2016 Admitting Diagnosis right lower lobe pneumonia, hypoxemia (1) Hypoxemia ICD Code: R09.02 Diagnosis: Principal (2) Urothelial carcinoma ICD Code: C68.9 Diagnosis: Secondary (3) General weakness ICD Code: R53.1 Diagnosis: Secondary (4) Atypical chest pain ICD Code: R07.89 Diagnosis: Secondary (5) Right lower lobe pneumonia ICD Code: J18.1 Diagnosis: Secondary (6) Antineoplastic chemotherapy induced anemia ICD Code: D64.81 Diagnosis: Secondary Procedures none Brief History - From Admission This is a 66yF with history of urothelial carcinoma with wide-spread retroperitoneal mets including pelvic mets who is actively undergoing chemotherapy with vincristine, cisplatin, doxorubicin, and methotrexate (last chemo 08/28) who presents with new-onset shortness of breath, nausea, vomiting x 1 day. She endorses fever, but denies chills. denies chest pain. Of note, she was started on methadone for cancer pain, and she took her first dose of this on an empty stomach, and felt nauseated a few hours after this. In the emergency room, she was found to have a wbc 11.1, fever to 101.4F, and a new oxygen requirement of 4L o2 by NC. Given the concern for possible impending neutropenia given her recent chemotherapy exposure, and the symptoms concerning for a pulmonary source, possible early sepsis was entertained. her lactate is 1.1. Critical care medicine is consulted to evaluate and manage her possible early sepsis. Of note, her BNP was slightly elevated at 700. 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 He give patient 40 mg of IV Lasix 1. I evaluated the patient at approximately 06:05am. When I evaluated her, she was alert and oriented and was able to confirm the above history. CBC/BMP: 09/03/16 1039 09/03/16 0545 Significant Findings Laboratory Tests Test 09/01/16 09/02/16 09/02/16 09/03/16 14:58 05:30 10:15 05:45 White Blood Count 24.7 TH/MM3 16.5 TH/MM3 (4.0-11.0) (4.0-11.0) Red Blood Count 3.31 MIL/MM3 2.96 MIL/MM3 (4.00-5.30) (4.00-5.30) Hemoglobin 10.4 GM/DL 9.3 GM/DL (11.6-15.3) (11.6-15.3) Hematocrit 29.2 % 26.4 % (35.0-46.0) (35.0-46.0) Potassium Level 3.1 MEQ/L 3.3 MEQ/L (3.5-5.1) (3.5-5.1) Creatinine 1.10 MG/DL 1.04 MG/DL (0.50-1.00) (0.50-1.00) Estimat Glomerular Filtration 49 ML/MIN (>89) 53 ML/MIN (>89) 70 ML/MIN (>89) Rate Random Glucose 116 MG/DL 121 MG/DL (74-106) (74-106) Calcium Level 8.2 MG/DL 8.4 MG/DL 8.3 MG/DL (8.5-10.1) (8.5-10.1) (8.5-10.1) Platelet Count 142 TH/MM3 (150-450) Vancomycin Level Trough 10.5 MCG/ML (5.0-10.0) Test 09/03/16 10:39 White Blood Count 3.2 TH/MM3 (4.0-11.0) Red Blood Count 3.04 MIL/MM3 (4.00-5.30) Hemoglobin 9.3 GM/DL (11.6-15.3) Hematocrit 27.0 % (35.0-46.0) Platelet Count 120 TH/MM3 (150-450) Eosinophils (%) (Auto) 4.4 % (0.0-4.0) Lymphocytes # (Auto) 0.7 TH/MM3 (1.0-4.8) Eosinophils % 7 % (0-4) Basophils % 3 % (0-2) Platelet Estimate LOW (NORMAL) Keratocytes OCC (NORMAL) Imaging Last Impressions Chest X-Ray 08/30/16 8312 Signed Impressions: Service Date/Time: August 05:06 - CONCLUSION: Right lower lobe infiltrate. Ronald Robbins Jr., MD CT Angiography 08/30/16 Signed Impressions: Service Date/Time: August 09:21 - CONCLUSION: 1. No evidence for pulmonary embolism. 2. Scattered groundglass densities possibly interstitial edema. 3. Bibasilar densities likely atelectasis. 4. Small pleural effusions, greater on the right. 5. Severe emphysema. Yevgeniy Marsh MD Abdomen/Pelvis CT 08/30/16 Signed Impressions: Service Date/Time: August 09:21 - CONCLUSION: 1. Soft tissue and bony destructive mass in the left hemipelvis measuring over 5 cm in diameter characteristic of metastatic renal cell carcinoma. Postoperative left nephrectomy. 2. Small bilateral pleural effusions with basilar lung atelectasis. 3. No gastric distention. No bowel obstruction, free fluid or free air. Willie Landa MD PE at Discharge GENERAL: This is a well-nourished, well-developed patient, in no apparent distress. CARDIOVASCULAR: Regular rate and rhythm RESPIRATORY: Diminished on bases with few crackles bilaterally GASTROINTESTINAL: Abdomen soft, non-tender, nondistended. Normal active bowel sounds MUSCULOSKELETAL: Extremities without clubbing, cyanosis, with trace edema NEURO: Alert & Oriented x4 to person, place, time, situation. Moves all ext x4 Hospital Course This is a 66yF with history of urothelial carcinoma with wide-spread retroperitoneal mets including pelvic mets who is actively undergoing chemotherapy with vincristine, cisplatin, doxorubicin, and methotrexate (last chemo 08/28) who presents with new-onset shortness of breath, nausea, vomiting x 1 day. She endorses fever, but denies chills. denies chest pain. Of note, she was started on methadone for cancer pain, and she took her first dose of this on an empty stomach, and felt nauseated a few hours after this. In the emergency room, she was found to have a wbc 11.1, fever to 101.4F, and a new oxygen requirement of 4L o2 by NC. Given the concern for possible impending neutropenia given her recent chemotherapy exposure, and the symptoms concerning for a pulmonary source, possible early sepsis was entertained. her lactate is 1.1. Critical care medicine is consulted to evaluate and manage her possible early sepsis. 66y/o female with metastatic/locally advanced urothelial cancer. Admitted after two days of palliative chemotherapy developed acutely short of breath along with significant amount of nausea or vomiting. It was found the patient early infiltrate and with early pneumonia and which infectious disease recommends continuing antibiotics due to recent chemotherapy. Continue Zithromax, vancomycin, cefepime IV, oxygen support. ID Dr Jacobs following. CT pulmonary angiogram obtained shows no PE. Currently on 2 L and will transferred out of the intensive care unit to oncology unit for continue medical management. PNA. With hypoxia, acute respiratory failure requiring O2. Walking test patient requires home O2. ID following. Continue zithromax, cefepime IV. DC vancomycin.Cleared by Dr Jacobs for DC to have levaquin Anemialikely due to chemotherapy Chronic kidney disease stage IIImonitor, avoid nephrotoxins Hypokalemiasupplement, monitor and replace as need. Metastatic invasive bladder cancer with recent chemotherapy.Continue current management per oncology. Continue pain control. Neck pain /muscle spasm. Add valium as patient says she had this pain before and only valium helps. DVT prophylaxis. Heparin SQ. Discharge Planning Home today Discussed with the patient, nurse, Dr jacobs, hem/onc Cleared for Dc by consultants, to follow up as OP with PCP and consultants. Pt Condition on Discharge: Fair Discharge Disposition: Disch w/ Home Health Serv Discharge Time: > 30 minutes Discharge Instructions DIET: Follow Instructions for: As Tolerated, No Restrictions Activities you can perform: Regular-No Restrictions Follow up Referrals: Oncology - 2-3 Days with Nelda Spaulding MD PCP Follow-up - 3-5 Days New Medications: Levofloxacin (Levaquin) 750 Mg Tab 750 MG PO DAILY Infection #9 Ref 0 TAB Oxygen tank (Oxygen tank) 1 Ea Tank 2 LITER ANDREW.CANULA CONTINUOUS Oxygen Concentrator Portable Gaseous 2 L/min via Nasal Cannula Continuous For 99 months HYPOXEMIA PREVENTION #2 CYLINDER Levofloxacin (Levaquin) 750 Mg Tab 750 MG PO DAILY infection #9 TAB Continued Medications: Acyclovir (Zovirax) 400 Mg Tab 400 MG PO HS Mgmt Viral Infection Ref 0 TAB Alprazolam (Xanax) 0.25 Mg Tab 0.25 MG PO BID PRN ANXIETY Ref 0 TAB Ascorbic Acid (Vitamin C) 500 Mg Cap 500 MG PO Nutritional Supplement Ref [address] (Laxative Feminine DR) 5 Mg Tabdr 5 MG PO DAILY PRN CONSTIPATION TAB Calcium-Vitamins D & K (Calcium + D & K) 500-1,000-40 Mg-Unit-Mcg Chew 1 TAB CHEW Nutritional Supplement Ref 0 TAB Clonidine (Catapres) 0.1 Mg Tab 0.1 MG PO HS PRN SLEEP #60 Ref 0 TAB Diazepam (Diazepam) 5 Mg Tab 5 MG PO BID PRN SPASM Ref 0 TAB Garlic (Garlic Oil) 1,000 Mg Cap Hydrocodone-Acetaminophen (Hydrocodone-Acetaminophen) 5-325 mg Tab 1 TAB PO Q6H PRN PAIN Ref 0 TAB Methadone (Methadone) 5 Mg Tab 5 MG PO DAILY TAB Multiple Vitamin (Multi Vitamin) 1 Tab Tab 1 TAB PO DAILY TAB Nortriptyline (Nortriptyline) 10 Mg Cap 10 MG PO HS Depression Control Ref 0 CAP Ondansetron (Zofran) 4 Mg Tab 4 MG PO Q4HR PRN NAUSEA OR VOMITING Ref 0 TAB Prochlorperazine Maleate (Prochlorperazine Maleate) 10 Mg Tab 10 MG PO Q6H PRN NAUSEA OR VOMITING Ref 0 TAB Propranolol (Propranolol) 10 Mg Tab 10 MG PO Q12HR #60 Ref 0 TAB Sumatriptan (Imitrex) 100 Mg Tab 100 MG PO ONCE If a satisfactory response has not been obtained at 2 hours, a second dose may be administered PRN MIGRAINE HEADACHE Ref 0 TAB Soraya Knight MD Sep 03, 2016 16:11
[2016-09-05] MEDS ORDERED: PHARMACY ORDERED LAB XX ONE (11:45)
== END 2016-09-03 16:48 | disposition home health service (06) | DRG 193 ==
LOC: PHED 03:40 → PHEDA 06:02 → N03B 08:06 → HOCA 08-31 18:40
PROVIDERS: ADMIT Hospitalist; ATTEND Hospitalist
DX: J18.9 Pneumonia, unspecified organism (principal); J96.01 Acute respiratory failure with hypoxia; N17.9 Acute kidney failure, unspecified; C78.6 Secondary malignant neoplasm of retroperitoneum and peritoneum; C79.51 Secondary malignant neoplasm of bone; N18.3 Chronic kidney disease, stage 3 (moderate); E44.1 Mild protein-calorie malnutrition; J98.11 Atelectasis; N39.0 Urinary tract infection, site not specified; B96.20 Unspecified Escherichia coli [E. coli] as the cause of diseases classified elsewhere; C67.9 Malignant neoplasm of bladder, unspecified; D64.81 Anemia due to antineoplastic chemotherapy; T45.1X5A Adverse effect of antineoplastic and immunosuppressive drugs, initial encounter; Z85.528 Personal history of other malignant neoplasm of kidney; Z90.5 Acquired absence of kidney; G43.909 Migraine, unspecified, not intractable, without status migrainosus; E87.6 Hypokalemia; R73.9 Hyperglycemia, unspecified; M62.838 Other muscle spasm; M54.2 Cervicalgia; I34.1 Nonrheumatic mitral (valve) prolapse; F41.9 Anxiety disorder, unspecified; D50.9 Iron deficiency anemia, unspecified; Z68.33 Body mass index [BMI] 33.0-33.9, adult; Z87.891 Personal history of nicotine dependence
CPT/HCPCS: 36600; 71020; 71275; 74177; 80048; 80053; 80202; 81001; 82805; 82948; 83605; 83735; 83880; 85007; 85025; 85027; 87040; 87077; 87086; 87186; 87449; 87633; 87641; 87804; 93306; 94150; 94620; 94640; 94664; 94667; 94668; 96366; 96367; 96368; 96372; 96374; 96375; 96376; 96411; 96413; 96415; 96417; C9113; G0463; J0456; J0692; J1100; J1170; J1626; J1642; J1644; J1885; J1940; J1956; J2405; J2505; J2997; J3030; J3370; J3475; J3480; J7030; J7040; J7050; J9000; J9060; J9250; J9360; Q0164; Q9967

== ENCOUNTER 2017-01-17 23:45 | Emergency (ER) | payer MEDICARE, BC ==
[~2017-01-17] VITALS: Ht 160 cm; Wt 75.0 kg
[~2017-01-17 23:45] MED LIST changes: +LEVA750T PO; +METH5TAB PO; +NORT10CA PO; +OXYGENTANK NAS.CANULA; +PROP10TA6 PO
[2017-01-18 00:11] VITALS: BP 148/85; PULSE 89; RESP 16; TEMP 97.6; O2SAT 99
[2017-01-18] MEDS ORDERED: HYDR4TAB PO (00:54)
[2017-01-18] MEDS ORDERED: GARL100T PO (00:54)
[2017-01-18] MEDS ORDERED: AMIT10TA6 PO (00:54)
[2017-01-18] MEDS ORDERED: oxyCODONE/ACETAMINOPHEN 10 MG/325 MG TAB PO ONE (02:00)
[2017-01-18] MEDS ORDERED: ONDANSETRON ODT 4 MG TAB PO ONE (02:00)
--- NOTE | 2017-01-18 02:19 | RADHPO ---
EXAM DATE/TIME: 01/18/2017 01:57 [facility] COMPARISON: CT ABDOMEN & PELVIS W CONTRAST, August 30, 2016, 9:21. INDICATIONS : Left hip pain for 12 hours with no known injury MEDICAL HISTORY : Renal cancer with multiple metasatic lesions SURGICAL HISTORY : Metastatic tumor removal on left ilium ENCOUNTER: Initial ACUITY: 1 day PAIN SCORE: 10/10 LOCATION: Left entire hip FINDINGS: Examination of the left hip was performed with AP Pelvis. There is an expansile lytic lesion left luann ac wing, and known metastatic disease. The hip joint is of normal width without significant sclerosi s or bony hypertrophy. The acetabulum is grossly intact. CONCLUSION: Almost 3 cm lytic lesion left iliac wing expansile lesion consistent with metastatic disease. Left hi p is unremarkable. Zoltan Arana MD on January 18, 2017 at 2:16 Board Certified Radiologist. This report was verified electronically.
--- NOTE | 2017-01-18 02:36 | PD ---
HPI Chief Complaint: Pain: Acute or Chronic Time Seen by Provider: 01:49 Travel History International Travel<30 days: No Contact w/Intl Traveler<30days: No Traveled to known affect area: No History of Present Illness HPI 66-year-old female presents to the emergency department for complaint of left hip pain. Patient states she has metastatic bladder/renal cancer status post left nephrectomy and multiple metastatic lesions to the pelvis and iliac bone. Patient states for afternoon around 1 PM she was outside barefoot on the concrete driveway which was very hot and she started to hop around on the driveway to get over to the grass and noticed immediate pain in the left hip. Patient did not fall to the ground. Patient is inhibitory since with assistance of walker. Patient states she's had issues like this before where she has done something abruptly caused herself to have pain without evidence of fracture. Patient is prescribed methadone which she takes daily and breakthrough pain is treated with Dilaudid. Patient took a dose of Dilaudid at home and received no symptom relief so presents now for evaluation. Patient is not noticed any limb length discrepancy denies any lower extremity numbness tingling or weakness. Patient reports she is here to get a stronger pain medication. PFSH Past Medical History Narrative Medical Renal cancer with metastatic disease to bladder, muscle, bone status post chemotherapy and left nephrectomy; anxiety depression; mitral valve prolapse laminectomy, partial colectomy; occasional alcohol use no tobacco use; nursing notes reviewed Anxiety: Yes Cancer: Yes (hx of left kidney cancer mets to the bladder and colon, bone) Cardiovascular Problems: Yes (mitral valve prolapse) Chemotherapy: Yes Diabetes: No Diminished Hearing: No Endocrine: No Genitourinary: Yes (left kidney nephrectomy due to cancer) Hepatitis: No Hiatal Hernia: No Immune Disorder: No Implanted Vascular Access Dvce: Yes Musculoskeletal: Yes (L5-s1 pain, neck pain ) Neurologic: Yes (migraines) Psychiatric: Yes (anxiety) Reproductive: No Respiratory: No Immunizations Current: Yes Thyroid Disease: No Tetanus Vaccination: Unknown Menopausal: Yes Past Surgical History Abdominal Surgery: Yes (colon resection 2013 r/t kidney cancer with mets) AICD: No Body Medical Devices: kidney stent Cardiac Surgery: No Endocrine Surgery: No Genitourinary Surgery: Yes (left nephrectomy-12/2010 cancerous tumors removed from the bladder-2012) Joint Replacement: No Pacemaker: No Thoracic Surgery: No Other Surgery: Yes (LEFT KIDNEY REMOVED) Social History Alcohol Use: Yes (occas. wine) Tobacco Use: No (quit in 1992 smoked cigs 1 ppd) Substance Use: No Allergies-Medications (Allergen,Severity, Reaction): Coded Allergies: Clindamycin (Unverified Allergy, Severe, unknown reaction, 09/02/15) Keflex (Unverified Allergy, Severe, extreme headache, 09/02/15) Penicillin (Verified Allergy, Severe, MAKES ME SLEEPY, 09/02/15) Prednisone (Unverified Allergy, Severe, extreme agitation, 09/02/15) Morphine (Unverified Adverse Reaction, Mild, i.v. n/v, 09/02/15) Reported Meds & Prescriptions Reported Meds & Active Scripts Active Percocet (Oxycodone-Acetaminophen) 5-325 mg Tab 1-2 Tab PO Q6H PRN Reported Hydromorphone (Hydromorphone HCl) 4 Mg Tab 4 Mg PO BID PRN Amitriptyline (Amitriptyline HCl) 10 Mg Tab 5 Mg PO HS Garlic 100 Mg Tablet 1,000 Mg PO DAILY Nortriptyline (Nortriptyline HCl) 10 Mg Cap 10 Mg PO HS Propranolol (Propranolol HCl) 10 Mg Tab 10 Mg PO Q12HR Methadone (Methadone HCl) 5 Mg Tab 5 Mg PO DAILY Laxative Feminine DR (Bisacodyl) 5 Mg Tabdr 5 Mg PO DAILY PRN Zofran (Ondansetron HCl) 4 Mg Tab 4 Mg PO Q4HR PRN Prochlorperazine Maleate 10 Mg Tab 10 Mg PO Q6H PRN Diazepam 5 Mg Tab 5 Mg PO BID PRN Catapres (Clonidine) 0.1 Mg Tab 0.1 Mg PO HS PRN Calcium + D & K (Calcium-Vitamins D & K) 500-1,000-40 Mg-Unit-Mcg Chew 1 Tab CHEW Xanax (Alprazolam) 0.25 Mg Tab 0.25 Mg PO BID PRN Zovirax (Acyclovir) 400 Mg Tab 400 Mg PO HS Review of Systems Except as stated in HPI: all other systems reviewed are Neg Physical Exam Narrative GENERAL: Well-developed thin female in no acute distress no respiratory distress SKIN: Warm and dry. HEAD: Normocephalic. EYES: No scleral icterus. No injection or drainage. NECK: Supple, trachea midline. No JVD or lymphadenopathy. CARDIOVASCULAR: Regular rate and rhythm without murmurs, gallops, or rubs. RESPIRATORY: Breath sounds equal bilaterally. No accessory muscle use. GASTROINTESTINAL: Abdomen soft, non-tender, nondistended. MUSCULOSKELETAL: No cyanosis, or edema. Pain on hip flexion or with palpation that patient reports is chronic distally extremities are neurovascular tendon intact without external or internal rotation or shortening. BACK: Nontender without obvious deformity. No CVA tenderness. Data Data Last Documented VS Vital Signs Date Time Temp Pulse Resp B/P Pulse Ox O2 Delivery O2 Flow Rate FiO2 01/18/17 02:45 18 01/18/17 02:38 98 01/18/17 00:11 97.6 89 148/85 Orders Hip, Uni(Ap&Lat) W Ap Pelvis (01/18/17 ) Oxycodone-Acetamin 10-325 Mg (Percocet 1 (01/18/17 02:00) Ondansetron Odt (Zofran Odt) (01/18/17 02:00) [facility] Medical Decision Making Medical Screen Exam Complete: Yes Emergency Medical Condition: Yes Medical Record Reviewed: Yes Interpretation(s) Last Impressions Hip and Pelvis X-Ray 01/18/17 0000 Signed Impressions: Service Date/Time: Wednesday, January 18, 2017 01:57 - CONCLUSION: Almost 3 cm lytic lesion left iliac wing expansile lesion consistent with metastatic disease. Left hip is unremarkable. Zoltan Arana MD Differential Diagnosis Sprain strain fracture subluxation dislocation metastatic lesion Narrative Course Patient requesting pain medication given oral Percocet times one dose; imaging studies ordered Immunizations reviewed by radiologist shows 3 cm lytic lesion this is discussed with patient who states she has had this before. Patient reports pain improvement requesting prescription for pain medication. Patient given 10 tablets of Percocet 5/325 and alert. Follow-up with her primary and cannot take her Dilaudid if she is taking Percocet and does not take Percocet if she is taking Dilaudid for breakthrough pain. Patient's continued her chronic methadone management Diagnosis Primary Impression: Hip pain, left Additional Impression: Kidney cancer, primary, with metastasis from kidney to other site Qualified Code: C64.2 - Kidney cancer, primary, with metastasis from kidney to other site, left Referrals: Primary Care Physician 1 day Patient Instructions: Narcotic given in the ED, General Instructions Additional Instructions: Use walker to assist ambulation Follow-up with your primary/managing physician Take pain medication as prescribed as needed Return to the emergency department for any concerns or change in condition May use ice intermittently for first 12-24 hours to area soft tissue inflammation and then moist heat for comfort Med/Other Pt SpecificInfo: Prescription(s) given Scripts Oxycodone-Acetaminophen (Percocet)5-325 mg Tab1-2 Tab PO Q6H PRN (PAIN) #10 TAB Ref 0 Prov:Helene Viera MD 01/18/17 Disposition: 01 DISCHARGE HOME Condition: Stable Helene Viera MD January 18, 2017 02:36
[2017-01-18] MEDS ORDERED: PERC5TAB12 PO (02:37)
[2017-01-18 02:45] VITALS: RESP 18
== END 2017-01-18 02:49 | disposition home or self-care (01) ==
LOC: PHED 23:45
DX: M25.552 Pain in left hip (principal); C64.2 Malignant neoplasm of left kidney, except renal pelvis; C79.11 Secondary malignant neoplasm of bladder; C79.89 Secondary malignant neoplasm of other specified sites; C79.51 Secondary malignant neoplasm of bone; I34.1 Nonrheumatic mitral (valve) prolapse; F41.9 Anxiety disorder, unspecified; Z79.899 Other long term (current) drug therapy; Z88.0 Allergy status to penicillin
CPT/HCPCS: 73502; 99283

== ENCOUNTER → 2017-07-03 | Outpatient (CLI) | payer MEDICARE, BC ==
[~2017-07-03] MED LIST changes: +AMIT10TA6 PO; -ASCO500C PO; +GARL100T PO; -HYDR-3516 PO; +HYDR4TAB PO; -IMIT100T PO; -LEVA750T PO; -MULT-135 PO; -OXYGENTANK NAS.CANULA; +PERC5TAB12 PO; -[UNRECOGNIZED DRUG - CODE]
[2017-07-03 16:45] LABS: AUTOMATED NEUTROPHIL # 3.5 TH/MM3 (1.8-7.7); BASOPHIL % 0.7 % (0.0-2.0); EOSINOPHIL # 0.1 TH/MM3 (0-0.4); EOSINOPHIL % 2.4 % (0.0-4.0); HEMATOCRIT 34.1 % (35.0-46.0); HEMO FLAGS DIFF FINAL; LYMPH % 32.1 % (9.0-44.0); LYMPHOCYTE # 1.9 TH/MM3 (1.0-4.8); MEAN CELL VOLUME 89.2 FL (80.0-100.0); MEAN CORPUSCULAR HEMOGLOBIN 28.9 PG (27.0-34.0); MEAN CORPUSCULAR HGB CONC 32.4 % (32.0-36.0); MONO % 6.7 % (0.0-8.0); NEUT % 58.1 % (16.0-70.0); PLATELET COUNT 230 TH/MM3 (150-450); RED BLOOD COUNT 3.82 MIL/MM3 (4.00-5.30); RED CELL DISTRIBUTION WIDTH 22.5 % (11.6-17.2)
[2017-07-03 17:08] LABS: ALT (GPT) 38 U/L (10-53); ANION GAP 8 MEQ/L (5-15); AST (GOT) 25 U/L (15-37); BICARBONATE 26.8 MEQ/L (21.0-32.0); BLOOD UREA NITROGEN 9 MG/DL (7-18); CHLORIDE 107 MEQ/L (98-107); GLOMERULAR FILTRATION RATE 39 ML/MIN (>89); LDH SERUM 140 U/L (84-246); POTASSIUM 3.7 MEQ/L (3.5-5.1); SODIUM (NA) 142 MEQ/L (136-145); URIC ACID 6.9 MG/DL (2.6-6.0)
[2017-07-03 17:10] LABS: ALKALINE PHOSPHATASE 101 U/L (45-117); TOTAL BILIRUBIN ADULT 0.5 MG/DL (0.2-1.0)
== END ==
LOC: PLAB 11:41
DX: C67.9 Malignant neoplasm of bladder, unspecified (principal)
CPT/HCPCS: 36415; 80053; 83615; 84100; 84550; 85025

== ENCOUNTER → 2017-07-09 | Outpatient (CLI) | payer MEDICARE, BC ==
[2017-07-09 16:16] LABS: AUTOMATED NEUTROPHIL # 3.2 TH/MM3 (1.8-7.7); BASOPHIL % 0.6 % (0.0-2.0); EOSINOPHIL # 0.2 TH/MM3 (0-0.4); EOSINOPHIL % 3.3 % (0.0-4.0); HEMO FLAGS DIFF FINAL; LYMPH % 28.2 % (9.0-44.0); LYMPHOCYTE # 1.5 TH/MM3 (1.0-4.8); MEAN CELL VOLUME 90.5 FL (80.0-100.0); MEAN CORPUSCULAR HEMOGLOBIN 29.7 PG (27.0-34.0); MEAN CORPUSCULAR HGB CONC 32.8 % (32.0-36.0); MONO % 7.8 % (0.0-8.0); NEUT % 60.1 % (16.0-70.0); PLATELET COUNT 218 TH/MM3 (150-450); RED BLOOD COUNT 3.87 MIL/MM3 (4.00-5.30); RED CELL DISTRIBUTION WIDTH 22.7 % (11.6-17.2); WHITE BLOOD COUNT 5.4 TH/MM3 (4.0-11.0)
[2017-07-09 16:24] LABS: ALT (GPT) 46 U/L (10-53); ANION GAP 8 MEQ/L (5-15); AST (GOT) 35 U/L (15-37); BICARBONATE 27.4 MEQ/L (21.0-32.0); BLOOD UREA NITROGEN 16 MG/DL (7-18); CHLORIDE 105 MEQ/L (98-107); GLOMERULAR FILTRATION RATE 37 ML/MIN (>89); SODIUM (NA) 140 MEQ/L (136-145); URIC ACID 7.2 MG/DL (2.6-6.0)
[2017-07-09 16:26] LABS: ALKALINE PHOSPHATASE 111 U/L (45-117); LDH SERUM 161 U/L (84-246); TOTAL BILIRUBIN ADULT 0.4 MG/DL (0.2-1.0)
== END ==
LOC: PLAB 11:59
DX: C67.9 Malignant neoplasm of bladder, unspecified (principal)
CPT/HCPCS: 36415; 80053; 83615; 84100; 84550; 85025